=== PATIENT | male | born 1985 | race Caucasian/White ===

== ENCOUNTER 2022-06-17 11:02 | Emergency (ER) | payer OTHER, SELFPAY ==
[2022-06-17] VITALS (24 sets, daily range): BP systolic 141–171; BP diastolic 93–109; PULSE 68–115; RESP 10–21; TEMP 36.6; O2SAT 94–100
--- NOTE | ~2022-06-17 | XR_ITS ---
EXAMINATION: XR abdomen/kub 1V DATE: 06/17/2022 13:51 INDICATION: Right ureteral stone. TECHNIQUE: A supine view of the abdomen on 2 radiographs was obtained. COMPARISON: CT abdomen and pelvis 06/17/2022 FINDINGS: There are no dilated loops of bowel. There is a 6 mm stone in proximal right ureter. IMPRESSION: 1. 6 mm stone in proximal right ureter. Reviewed, dictated and finalized at location A.
--- NOTE | ~2022-06-17 | CT_ITS ---
EXAMINATION: CT abdomen pelvis wo con DATE: 06/17/2022 12:34 INDICATION: Right flank pain, hematuria. Nausea and vomiting. TECHNIQUE: Computed tomography (CT) of the abdomen and pelvis was performed without intravenous contr ast. Automated exposure control and iterative reconstruction technique were employed. Exam dose: 656 .80 mGy-cm total exam DLP. COMPARISON: None. FINDINGS: The lung bases are clear. Normal heart size. No pericardial or pleural effusion. The liver, gallbladder, bile ducts, spleen, pancreas, pancreatic duct and adrenal glands are unremark able. No left renal mass lesion or left urinary tract calculus or hydroureteronephrosis. There is right nephromegaly and perinephric stranding and mild to moderate right hydronephrosis due t o a 5 x 7.7 mm right ureteropelvic calculus. The urinary bladder and prostate gland are unremarkable. Normal caliber of the abdominal aorta. No intraperitoneal or retroperitoneal or pelvic mass lesion or adenopathy or ascites. Normal appendix. Tortuous redundant sigmoid colon. No bowel obstruction, bowel wall thickening, pneum atosis or intraperitoneal free air is evident. Small fat-containing umbilical hernia. Included skeletal structures are unremarkable. IMPRESSION: Approximately 5 x 7.7 mm obstructing right ureteropelvic calculus with mild to moderate right hydronephrosis, right perinephric stranding Reviewed, dictated and finalized at Location A. Reviewed, dictated and finalized at location B.
[2022-06-17 11:30] LABS: Basophils Percent Auto 0.2 % (0.2-1.2); Eosinophils Percent Auto 0.1 % (0-4.4); Hematocrit 42.4 % (42.0-52.0); Hemoglobin 14.4 g/dL (14.0-18.0); Immature Granulocyte Absolute 0.04 K/mm3 (0.00-0.031); Immature Granulocyte Percent A 0.4 % (0-0.5); Lymphocytes Absolute Auto 1.39 K/mm3 (0.9-3.2); Mean Corpuscular Hemoglobin 30.3 pg (26-34); Mean Corpuscular Volume 89.1 fl (80-100); Mean Platelet Volume 9.7 fl (7.4-10.4); Monocytes Absolute Auto 0.5 K/mm3 (0.1-0.6); Monocytes Percent Auto 4.3 % (2.6-8.5); Neutrophils Absolute Auto 8.8 K/mm3 (1.3-6.7); Platelet Count Result 293 k/mm3 (150-375); Red Blood Count 4.76 M/mm3 (4.6-6.20); White Blood Count 10.7 K/mm3 (4.5-10.0)
[2022-06-17 11:40] LABS: Alanine Aminotransferase 23 U/L (6-50); Albumin Level 4.6 g/dL (3.5-5.1); Alkaline Phosphatase 78 U/L (38-126); Anion Gap 10 mmol/L (8-16); Aspartate Amino Transferase 36 U/L (17-59); Bilirubin,Total 0.7 mg/dL (0.2-1.3); Blood Urea Nitrogen 18 mg/dL (9-20); Calcium 9.3 mg/dL (8.4-10.2); Carbon Dioxide 24 mmol/L (22-30); Chloride 98 mmol/L (98-107); Estimated CRCL calculation 88 ml/min; Estimated Glomerular Filt Rate > 60; Glucose 131 mg/dL (65-110); Lipase 92 U/L (23-300); Potassium 4.1 mmol/L (3.4-5.0); Sodium 132 mmol/L (137-145)
[2022-06-17 11:57] LABS: Appearance Urine Cloudy (Clear); Bilirubin Urine 1+ (Negative); Blood Urine 3+ (Negative); Color Urine Yellow (Yellow); Glucose Urine UA Negative (Negative); Ketones Urine 3+ mg/dL (Negative); Leukocyte Esterase Ur Negative LEU/UL (Negative); Nitrate Urine Negative (Negative); Protein Urine 2+ mg/dL (Negative); Specific Grav Ur >= 1.030 (1.001-1.035); pH Urine 5.5 (5.0-9.0)
[2022-06-17 12:05] LABS: Mucus Urine Heavy /lpf; RBC Urine >75 /hpf (0-2)
[2022-06-17 12:14] LABS: Add Urine Microscopic? YES
[2022-06-17] MEDS: MORPHINE SULFATE (*CRX) 4 MG/ML INJ IV PUSH (12:56)
[2022-06-17] MEDS: ONDANSETRON INJ 4 MG/2 ML VIAL IV PUSH (12:56)
--- NOTE | 2022-06-17 13:13 | ED.ABDPAIN ---
HPI - Abdominal Pain General Chief Complaint: Abdominal Pain Stated Complaint: abd pain r. sided Time Seen by Provider: 06/17/22 11:37 History of Present Illness HPI narrative: Patient is a 37-year-old male here for evaluation of right flank pain and right lower quadrant abdominal pain for the past day. Patient states the pain is intermittent in nature, is severe, begins in his right flank and radiates around to his right lower quadrant. Also reports 1 episode of hematuria 3 days ago, none since. He also reports 2 episodes of nausea and vomiting. He denies any diarrhea, constipation, fevers, chills. No history of kidney stones. Related Data Home Medications Medication Instructions Recorded Confirmed bupropion HCl 150 mg 24 hr tablet, 150 mg PO 06/17/22 extended release Allergies Allergy/AdvReac Type Severity Reaction Status Date / Time No Known Allergies Allergy Verified 06/17/22 11:37 Review of Systems Review of Systems: Gen: Denies fevers or chills Eyes: Denies eye pain or visual change ENT: Denies congestion Respiratory: Denies shortness of breath or cough CV: Denies chest pain or palpitations GI: Reports nausea and vomiting, RLQ pain. Denies diarrhea denies burning, urgency, frequency or hematuria Musculoskeletal: Reports right flank pain. Neuro: Denies numbness, tingling, weakness or focal weakness Skin: Denies rash Except as documented, all other systems reviewed and negative Exam Narrative: APPEARANCE: uncomfortable appearing. Head: Normocephalic and atraumatic. EYES: PERRLA/EOMI, conjunctivae clear NOSE: No nasal drainage EARS: External ear normal in appearance THROAT: Oropharynx is clear. Mucous membranes are moist. NECK: Supple. No adenopathy, no masses. RESPIRATORY: Airway patent, respirations nonlabored. Clear to auscultation bilaterally, no rales, rhonchi, wheezing. CARDIOVASCULAR: Regular rate and rhythm without murmurs, rubs, or gallops. ABDOMINAL: no CVA tenderness. Normoactive bowel sounds. Soft, nontender, nondistended. No rebound tenderness or guarding. MUSCULOSKELETAL: Extremities are warm and well-perfused. Moves all extremities well. No edema. NEURO: Normal speech. No focal neurologic deficits. SKIN: Skin is warm and dry. No rashes. PSYCHIATRIC: Normal affect/mood. Course Consultations Consultation #1: Spoke with Dr. Whyte, urology, agrees with plan for outpatient management Date: 06/17/22 Time: 13:34 Vital Signs Vital signs: Vital Signs Temperature 97.9 F 06/17/22 11:08 Pulse Rate 115 H 06/17/22 11:08 Respiratory Rate 14 06/17/22 11:08 Blood Pressure 158/109 H 06/17/22 11:08 Pulse Oximetry 99 06/17/22 11:08 Oxygen Delivery Room Air 06/17/22 11:08 Temperature 97.9 F 06/17/22 11:08 Pulse Rate 96 06/17/22 14:16 Respiratory Rate 17 06/17/22 14:16 Blood Pressure 141/107 H 06/17/22 14:16 Pulse Oximetry 95 06/17/22 14:16 Oxygen Delivery Room Air 06/17/22 11:29 MDM - Abdominal Pain MDM Narrative Medical decision making narrative: 37-year-old male here for evaluation of right flank pain, hematuria, nausea and vomiting over the past day. On exam, he is uncomfortable appearing, but he has no CVA tenderness or abdominal tenderness to palpation. On CT scan he has evidence of a 5 x 7 mm ureteropelvic stone on the right. He has a slight white count to 10.7, has blood in his urine, ketones, and 10-15 white blood cells. Pain and nausea improved after morphine and Zofran, and patient tolerated his p.o. challenge. Spoke with Dr. Whyte, urology, who recommends KUB in ED, flomax, sending home with urine strainer, and will see in office this week. Patient updated on plan and he is agreeable. We will send him home with pain medicine, advised him to stay away from anti-inflammatories. He was given reasons to return to the ED and he voiced understanding. Lab Data Result diagrams: 06/17/22 11:22 06/17/22 11:22 Zeynep
== END 2022-06-17 14:25 | disposition home or self-care (01) ==
PROVIDERS: Emergency Provider Emergency Medicine
DX: N13.2 Hydronephrosis with renal and ureteral calculous obstruction (principal)
CPT/HCPCS: 36415; 74018; 74176; 80053; 81001; 83690; 85025; 87086; 96374; 96375; 99284; J2270; J2405

== ENCOUNTER 2022-06-21 01:30 | Day surgery (SDC) | payer OTHER, SELFPAY ==
[2022-06-19 14:55] VITALS: BMI 28.0
--- NOTE | 2022-06-19 14:59 | SUR.PREOP ---
Report to the Outpatient Waiting Room, entrance under the green pavilion located off [facility], at time _1230 on date _06/21/22 . OR Time: 1430 . - You and your visitor will be asked a series of questions to screen for COVID 19 for your protection. - Only one visitor is allowed at this time. - The patient visitor is requested to leave or wait in car when not with patient. - A mask is required within the hospital. Patients may have clear liquids (water, carbonated beverages, clear teas, apple juice) until 3 hours prior to surgery with a maximum of 20 ounces. - No food from midnight until time of surgery - Infants may have breast milk until 4 hours before surgery, infant formula 6 hours prior to surgery. - Children will be allowed to drink immediately following surgery. If applicable, please bring a bottle or sippy cup to assist with drinking. Juice, water, soda, and popsicles are readily available. For infants on formula, please bring formula the day of surgery. Pacifiers are allowed. Take the following medications with a SIP of water the morning of surgery: ___bupropion,pain med if needed Medications to discontinue per physician ____n/a Date to take last dose____n/a Please no make-up, nail macanese, hairspray, perfume, deodorant, or body powder the day of surgery. No jewelry (including any body piercings) or valuables the day of surgery, leave them at home. Please take a shower or bath the night before, or the morning of, surgery with an antibacterial soap. Wear comfortable, loose fitting clothing. Children are encouraged to wear pajamas. - Jewelry must be removed prior to entering the operating room. Rings and piercings that are not removed may be cut off. - The hospital will not accept responsibility for valuables. - Please leave all valuables, including medications, at home the day of surgery. If you are going home after surgery, a licensed ready mix truck driver must drive you home. - NO public transportation without another adult. - We recommend that an adult stay with you for 24 hours following discharge. - We also recommend that you do not drive, make important decision, drink alcoholic beverages, or take any drugs that were not prescribed by your health care provider for at least 24 hours after your discharge time. For Pediatric surgeries, we recommend two adults accompany the child home (only one inside the building at this time). Follow any additional instructions given to you from your surgeon. If you or anyone in your household have experienced Covid symptoms in the past week, please notify your surgeon or the nurse liaison at the phone number below for possible testing. Telephone instructions given to _mariaa velez and asked if any additional questions and then verbalized understanding. Patient advised to call surgeon office or pre surgery nurse liaison [phone] if any additional questions.
[2022-06-21] VITALS (7 sets, daily range): BP systolic 110–156; BP diastolic 62–101; PULSE 78–107; RESP 10–16; TEMP 36.8–37.1; O2SAT 98–99
--- NOTE | ~2022-06-21 | XR_ITS ---
EXAMINATION: XR abdomen/kub 1V DATE: 06/21/2022 13:14 INDICATION: Right kidney stone. TECHNIQUE: A supine view of the abdomen on 2 radiographs was obtained. COMPARISON: CT abdomen and pelvis 06/17/2022 FINDINGS: There are no dilated loops of bowel. There is a 7 mm stone in proximal right ureter at L2. IMPRESSION: 1. 7 mm stone in proximal right ureter. Reviewed, dictated and finalized at location A.
--- NOTE | 2022-06-21 07:00 | WPDHPUPDATE1 ---
History and Physical Update Update Date/Time: 06/21/22 07:00 History and Physical has been reviewed, including an updated exam of the patient. There are NO changes in the patient's condition. Risks, benefits, and alternatives have been discussed and questions answered. Patient agrees to proceed with procedure.
[2022-06-21] MEDS: LACTATED RINGERS 1,000 ML 30 ML IV CONT (13:30)
[2022-06-21 14:21] LABS: Partial Thromboplastin Time 29.3 SECONDS (22.3-36.8)
--- NOTE | 2022-06-21 14:26 | P.PNAN_ITS ---
Anes - Initial Pre Proc Eval Procedure: Operation Date: 06/21/22 15:00 Proposed Procedures p Right Ureteral Extracorporeal Shock Wave Lithotripsy - Edi Brooke MD Date/Time: 06/21/22 14:26 Surgeon: Edi Brooke MD Pre Op Diagnosis: Rt ureteral kidney stones Patient Data Age: 37 Gender: M Height: 1.75 m Weight: 81.25 kg Last Vital Signs Temp 37.1 C 06/21/22 14:00 Pulse 107 H 06/21/22 14:00 Resp 16 06/21/22 14:00 BP 153/99 H 06/21/22 14:00 Pulse Ox 98 06/21/22 14:00 O2 Del Method Room Air 06/21/22 14:00 Allergies Allergy/AdvReac Type Severity Reaction Status Date / Time No Known Allergies Allergy Verified 06/21/22 14:06 Home Medications Medication Instructions Recorded Confirmed Type bupropion HCl 150 mg 24 hr tablet, 150 mg PO DAILY 06/17/22 06/21/22 History extended release hydrocodone 5 mg-acetaminophen 325 1 tablet PO Q6H PRN pain #7 tabs 06/17/22 06/21/22 Rx mg tablet tamsulosin 0.4 mg capsule (Flomax) 0.4 mg PO DAILY #14 caps 06/17/22 06/21/22 Rx Laboratory Tests 06/21/22 13:38 PT 13.0 Seconds Seconds (11.1-14.7) INR 1.0 APTT 29.3 SECONDS SECONDS (22.3-36.8) Patient hx anesthesia problems: none Family hx anesthesia problems: none Results Review: All pre-operative results and documents have been reviewed as part of the pre- operative evaluation. [facility] Past Medical History Medical History Depression Social History Social History Smoking status: Never smoker Alcohol intake: current Drinks per week: 4 Living arrangements: alone Spiritual care concerns: No Anes - Eval Final PreProcedure Day of Procedure 06/21/22 14:26 Patient weight: overweight Heart: regular rate and rhythm Lungs: clear to auscultation Airway: Mallampati scale class II Neurological: alert and oriented Last oral intake: >/= 8 hours ASA classification: II Emergent: no Anesthetic plan: proceed Anesthesia type and monitoring: general LMA and standard monitoring Results Review: All pre-operative results and documents have been reviewed as part of the pre- operative evaluation. Informed Consent: The patient's anesthetic plan and its attendant risks and benefits were discussed with the patient/family/POA. Questions were solicited and answers provided to the satisfaction of the patient/family/POA.
[2022-06-21] MEDS: ceFAZolin 2 GM/D5W 50 ML 2 GM/50 ML BAG IVPB (15:21)
--- NOTE | 2022-06-21 16:10 | W.PM.PROC2 ---
Procedure Note - Detailed Date of Procedure 06/21/22 Pre-op Diagnosis Rt. ureteral stones Post-op Diagnosis Same Procedure Performed Right ESWL Surgeon Edi Brooke MD Description of Procedure The patient was brought to the operative suite where he was placed in the supine position on the Dornier lithotripsy table. The focal point of the lithotripter was placed at a 7-8mm right proximal ureteral calculus. A total of 3000 shocks were delivered at a power setting of 4. There appeared to be good fragmentation of the stone. The patient tolerated the procedure well and was taken to the recovery room in good condition. Drains No Packing No Pathology Yes Complications No immediate complications Condition Stable Disposition PACU
[2022-06-21] MEDS: KETOROLAC 30 MG/ML VIAL (*BKC) IV PUSH (16:20)
== END 2022-06-21 17:20 | disposition home or self-care (01) ==
PROVIDERS: Visit Provider Urology
PROC: (CPT 50590; principal; 2022-06-21 15:00)
DX: N20.1 Calculus of ureter (principal); F32.A Depression, unspecified
CPT/HCPCS: 50590; 36415; 74018; 85610; 85730; J0690; J1100; J1885; J2250; J2405; J2704; J3010; J7120

== ENCOUNTER 2025-03-28 13:07 | Emergency (ER) | payer OTHER, SELFPAY ==
--- NOTE | ~2025-03-28 | CT_ITS ---
EXAMINATION: CT abdomen pelvis wo con DATE: 03/28/2025 14:22 INDICATION: Right flank pain. TECHNIQUE: Computed tomography (CT) of the abdomen and pelvis was performed without intravenous contr ast. Automated exposure control and iterative reconstruction technique were employed. The dose-length product was 464.39 mGy-cm. COMPARISON: None FINDINGS: Lung bases are clear. Heart size is normal. No pericardial or pleural effusion. Liver, gallbladder, s pleen, pancreas, bilateral adrenal glands and left kidney are normal. 7 x 5 mm obstructing stone at t he right ureteropelvic junction with mild right hydronephrosis. No other urolithiasis. Bladder is nor mal. Bowels including the appendix are normal. No free intraperitoneal gas or fluid. No pathologicall y enlarged abdominal or pelvic lymphadenopathy. Few scattered sclerotic bone islands in the pelvis an d proximal femurs the largest at the left posterior iliac spine with typical spiculated margins. IMPRESSION: 1. Obstructing 7 x 5 mm stone at the right ureteropelvic junction with mild right hydronephrosis. Reviewed, dictated and finalized at location A. IMPRESSION: 1. Obstructing 7 x 5 mm stone at the right ureteropelvic junction with mild rig ht hydronephrosis.
--- NOTE | ~2025-03-28 | XR_ITS ---
Exam: Abdomen 1V HISTORY: R upj stone COMPARISON: Reference is made to CT examination of the abdomen and pelvis dated 03/28/2025 (approximat nataly 3 hours earlier) TECHNIQUE: Supine images of the abdomen FINDINGS: Bowel gas pattern is non-obstructive. There is no free air or deep sulci. Redemonstration of a 7.2 mm calcification projecting to the right of the spine, presumably at the rig ht UPJ. Lung bases are unremarkable. Bones and soft tissues are unremarkable. IMPRESSION: Nonspecific, nonobstructive bowel gas pattern. Redemonstration of a 7.2 mm calcification projecting over the right ureteropelvic junction. Reviewed, dictated and finalized at location A. IMPRESSION: Nonspecific, nonobstructive bowel gas pattern. Redemonstration of a 7.2 mm calcification projecting over the right ureteropelv ic junction.
[2025-03-28 13:13] VITALS: BP 150/90; PULSE 83; RESP 16; TEMP 36.4; O2SAT 100
--- OUTSIDE RECORDS SUMMARY | 2025-03-28 13:13 | XMS_ITS | Clinical Summary ---
Author Organization [facility] [address] [facility] Address [address] [place] [address] Care Team Providers Care Patient Liaison Name Role Phone Vik Morrow MD Primary Care Prov ider Shantanu Dixon MD Unavailable [phone] Allergies No known active allergies Medications buPROPion SR (WELLBUTRIN SR) 150 mg 12 hr tabletIndicatio ns:Anxiety with Depression Take 150 mg by mouth every morning Active clonazePAM (KlonoPIN) 0.5 mg tablet Take 0.5 mg by mouth as needed for anxiety Active propranoloL (INDERAL) 40 mg tablet daily as needed 02/19/2022 Active methylcellulose oral powderIndicatio ns:bowels Take by mouth daily Active oxyCODONE (ROXICODONE) 5 mg immediate release tabletIndicatio ns:Pain Take 1 tablet (5 mg total) by mouth every 4 (four) hours as needed for pain 20 tablet 05/14/2022 Active Active Problems Problem Noted Date Diagnosed Date Anal warts 05/06/2022 Overview (05/06/2022): Added automatically from request for surgery [id number] Immunizations Immunization Administration Dates Next Due Moderna SARS-CoV-2 Monovalent Vaccination (12+ Y RS) 11/17/2021 Surgical History Surgery Date Site/Laterality Comments WISDOM TOOTH EXTRACTION Medical History Medical History Date Comments Anal warts Depression Anxiety PONV (postoperative nausea and vomiting) Family History Medical History Relation Name Comments Brain cancer Mother Anesthesia problems Neg Hx Relation Name Status Comments Mother Social History Tobacco Use Types Packs/Day Years Used Date Smoking Tobacco: Never Smokeless Tobacco: Never AUDIT-C Answer Date Recorded Q1: How often do you have a drink containing alc ohol? 2-3 times a week 05/14/2022 Q2: How many drinks containi ng alcohol do you have on a typical day when you are drinking? 3 or 4 05/14/2022 Q3: How often do you have si x or more drinks on one occasion? Monthly 05/14/2022 Sex and Gender Information Value Date Recorded Sex Assigned at Not on file Legal Sex Male 10:37 AM CDT Gender Identity Not on file Sexual Orientation Not on file Obstetrics History Last Filed Vital Signs Vital Sign Reading Time Taken Comments Blood Pressure 154/94 05/14/2022 3:50 PM CDT Pulse 81 05/14/2022 3:50 PM CDT Temperature 36.6 C (97.9 F) 05/14/2022 3:16 PM CDT Respiratory Rate 13 05/14/2022 3:50 PM CDT Oxygen Saturation 95% 05/14/2022 3:50 PM CDT Inhaled Oxygen Concentration - - Weight 88.5 kg (195 lb) 05/06/2022 3:15 PM CDT Height 175.3 cm (5' 9 ) 05/06/2022 3:15 PM CDT Body Mass Index 28.8 05/06/2022 3:15 PM CDT Plan of Treatment Health Maintenance Due Date Last Done Comments Depression Screening 1984 Hepatitis C Screening 1984 Varicella Vaccines (1 of 2 - 13+ 2-dose series) 01/19/1997 Regular Well Visit/Exam 18-64 01/19/2002 DTaP/Tdap/Td Vaccine (2 - Td or Tdap) 01/28/2024 01/27/2014 Covid-19 Vaccine ( season) 2024 11/17/2021, 03/23/2021 Influenza Vaccine (Season Ended) 2025 Hepatitis B Screening Completed 03/21/2022 , 11/07/2014, 06/02/2014, Additional history exists HPV Vaccines Aged Out No longer eligi ble based on patient's age to complete this topic Pneumococcal vaccine <65 Aged Out No longer eligible based on patient's age to complete this topic Insurance [facility] CHOICE PLUS Care Teams Patient Liaison Relationship Specialty Start Date End Date Vik Morrow MD PCP - General Family Practice 03/07/22 Shantanu Dixon MD [address] [facility] [place] [id number] [place] [address] Surgeon Colon and Rectal Surgery 05/03/22
--- OUTSIDE RECORDS SUMMARY | 2025-03-28 13:13 | XMS_ITS | Referral Summary ---
Author Organization [facility] [address] [facility] Address [address] [place] [address] Care Team Providers Care Firer Watertender Name Role Phone Vik Morrow MD Primary Care Prov ider Shantanu Dixon MD Unavailable [phone] Allergies No known active allergies Medications buPROPion [...] (05/06/2022): Added automatically from request for surgery [id number] Immunizations Immunization Administration Dates Next Due Moderna SARS-CoV-2 Monovalent Vaccination (12+ Y RS) 11/17/2021 Social History Tobacco Use Types Packs/Day Years [...] on file Sexual Orientation Not on file Last Filed Vital Signs Vital Sign Reading [...] 05/06/2022 3:15 PM CDT Plan of Treatment Not on file Insurance CHOICE PLUS Care Teams Firer Watertender Relationship Specialty Start Date End Date Vik Morrow MD PCP - General Family Practice 03/07/22 Shantanu Dixon MD [address] [facility] [id number] [place] [address] Surgeon Colon and Rectal Surgery 05/03/22
--- OUTSIDE RECORDS SUMMARY | 2025-03-28 13:13 | XMS_ITS | Patient Health Record ---
Author Organization [facility] Address [address] [place] [address] Care Team Providers Care Manufacturing Engineer Automotive Name Role Phone Vik Morrow Primary Care Provider [phone] PrelutskRodrigo haile [phone] Allergies No Known Allergies Results Component Value Reference Range Notes RPR, Rfx Qn RPR/Confirm TP Reviewed date:10/06/2024 08:46:05 AM Interpretation: Performing Lab:[facility], [address] [facility], Phone - [phone], [facility] Notes/Report: RPR Non Reactive Non Reactive CBC, Platelet, No Differenti al Reviewed date:10/06/2024 06:49:32 AM Interpretation: Performing Lab:[facility], [address] [facility], [place], Phone - [phone], [facility] Notes/Report: WBC 4.8 3.4-10.8 x10E3/uL Effective October 11, 2024 profile [id number] WBC will be made non-orderable as a stand-alone order code. RBC 4.38 4.14-5.80 x10E6/uL Hemoglobin 13.5 13.0-17.7 g/dL Hematocrit 40.0 37.5-51.0 % MCV 91 79-97 fL MCH 30.8 26.6-33.0 pg MCHC 33.8 31.5-35.7 g/dL RDW 12.2 11.6-15.4 % Platelets 282 150-450 x10E3/uL NRBC PUBLIC SAFETY DISPATCHER HIV 1/2 Antibody Panel 26930 5 Reviewed date:10/06/2024 06:49:32 AM Interpretation: Performing Lab:[facility] [place], [address] [place] [address], Phone - [phone], [facility] Notes/Report: HIV Ab/p24 Ag Screen Non Reactive Non Reactive HIV-1/HIV-2 antibodies and HIV-1 p24 antigen were NOT detected. There is no laboratory evidence of HIV infection. HIV Negative Lipid Panel Reviewed date:10/06/2024 06:49:32 AM Interpretation: Performing Lab:[facility] [place], [address] [place] [address], Phone - [phone], [facility] Notes/Report: Cholesterol, Total 185 100-199 mg/dL Triglycerides 81 0-149 mg/dL HDL Cholesterol 60 >39 mg/dL VLDL Cholesterol Michael 15 5-40 mg/dL LDL Chol Calc ([facility]) 110 0-99 mg/dL LDL Calc Comment: PUBLIC SAFETY DISPATCHER Comp. Metabolic Panel (14) Reviewed date:10/06/2024 06:49:32 AM Interpretation: Performing Lab:[facility] [place], [address] [facility], Phone - [phone], [facility] Notes/Report: Glucose 96 70-99 mg/dL BUN 12 6-24 mg/dL Creatinine 0.85 0.76-1.27 mg/dL eGFR 113 >59 mL/min/1.73 BUN/Creatinine Ratio 14 9-20 Sodium 139 134-144 mmol/L Potassium 4.1 3.5-5.2 mmol/L Chloride 103 96-106 mmol/L Carbon Dioxide, Total 25 20-29 mmol/L Calcium 9.3 8.7-10.2 mg/dL Protein, Total 6.8 6.0-8.5 g/dL Albumin 4.3 4.1-5.1 g/dL Globulin, Total 2.5 1.5-4.5 g/dL Bilirubin, Total 0.6 0.0-1.2 mg/dL Alkaline Phosphatase 65 44-121 IU/L AST (SGOT) 18 0-40 IU/L ALT (SGPT) 25 0-44 IU/L UA/M w/rflx Culture, Comp Reviewed date:10/06/2024 12:42:11 PM Interpretation: Performing Lab:[facility] [place], [address] [facility], [place], Phone - [phone], Director - [place] Notes/Report: Specific Clinton 1.021 1.005-1.030 pH 7.5 5.0-7.5 Urine-Color Yellow Yellow Appearance Cloudy Clear WBC Esterase Negative Negative Protein Negative Negative/Trace Glucose Negative Negative Ketones Negative Negative Occult Blood Negative Negative Bilirubin Negative Negative Urobilinogen,Semi-Qn 1.0 0.2-1.0 mg/dL Nitrite, Urine Negative Negative Microscopic Examination Comment Micr oscopic follows if indicated. Microscopic Examination See below: Micr oscopic was indicated and was performed. Urinalysis Reflex Comment This speci men will not reflex to a Urine Culture. WBC None seen 0 - 5 /hpf RBC None seen 0 - 2 /hpf Epithelial Cells (non renal) None seen 0 - 10 /hpf Epithelial Cells (renal) PUBLIC SAFETY DISPATCHER Casts None seen None seen /lpf Cast Type PUBLIC SAFETY DISPATCHER Crystals PUBLIC SAFETY DISPATCHER Crystal Type PUBLIC SAFETY DISPATCHER Mucus Threads PUBLIC SAFETY DISPATCHER Bacteria None seen None seen/Few Yeast PUBLIC SAFETY DISPATCHER Trichomonas PUBLIC SAFETY DISPATCHER Comment PUBLIC SAFETY DISPATCHER Hemoglobin A1C Reviewed date:10/05/2024 10:55:46 AM Interpretation:5.0% Performing Lab: Notes/Report: 5.0% HbA1c 5.0% Reason For Referral Reason please evaluate and treat at [facility] u Diagnosis 1 Cassei toenail (L60 .0) Referral Organization [facility], [facility] Referring Provider First Name Vik Referring Provider Last Name Cristhian Referring Provider Speciality [facility] Referred Provider Specialty Podiatry General Notes Olivia Harley 04/01/20 24 06:33:35 AM > sent to Streamline Referral Priority Routine Medications Medication SIG (Take, Route, Frequency, Duration) Notes Start Date End Date Status buPROPion HCl ER (XL) 150 MG TAKE 1 TABLET BY MOUTH EVERY DAY IN THE MORNING for 90 days Active Propranolol HCl 40 MG TAKE 1 TO 2 TABLET S BY MOUTH ONCE A DAY NEEDED FOR FLUSHING for 30 days Active clonazePAM 0.5 MG TAKE 1 TABLET BY TOVA TH EVERY DAY NEEDED FOR ANXIETY for 20 03/17/2025 Active cloNIDine HCl ER 0.1 MG 1 tablet Orally Once a day for 30 days 02/07/2025 Active Zolpidem Tartrate 10 MG TAKE 1 TABLET BY MOUTH DAILY AT BEDTIME FOR 14 DAYS NEEDED for 14 11/19/2024 Active Immunizations Vaccine Route Administration Date Status Comme nts HPV VIRUS VACCINE 9 (Gardasil 9) IM Intramuscular 05/07/2022 Administered HPV VIRUS VACCINE 9 (Gardasil 9) IM Intramuscular 09/22/2023 Administered Hep B, High Risk (Recombivax, Energix) IM Intramuscular 05/07/2022 Administered Hep B, Adult (Recombivax, Energix) IM Intramuscular 03/21/2022 Administered Flulaval Quadrivalent (Influenza Vaccine) IM Intramuscular 10/05/2024 Administered Flulaval IM Intramuscular 09/22/2023 Administered Comirnaty Covid-19 Vaccine, mRNA (2023-2024Formula) IM Intramuscular 10/05/2024 Administered Social History Tobacco Use: Social History Observation Description Date Details (start date - stop date) Never Smoker NA - NA Sex Assigned At : Social History Observation Description Sex Assigned At Male Tobacco Use/Smoking Question Answer Notes Smoking Status: nonsmoker Alcohol Screen (Audit-C) Question Answer Notes Did you have a drink contain ing alcohol in the past year? Yes How often did you have 6 or more drinks on one occasion in the past year? Weekly (3 points) How many drinks did you have on a typical day when you were drinking in the past year? 3 or 4 drinks (1 point) How often did you have a dri nk containing alcohol in the past year? 2 to 3 times a week (3 points) Tobacco use other than smoking: Question Answer Notes Are you an other tobacco user? No Problems Problem Type SNOMED Code ICD Code Onset Dates Problem Status W/U Status Risk Notes Problem [id number] MERCEDES (generalized anxiety disorder) (F41.1) Active confirmed Vital Signs Heart Rate 85 /min 10/05/2024 Temperature 97.7 degrees Fahrenheit 10/05/2024 Respiratory Rate 14 /min 10/05/2024 Oximetry 98 % 10/05/2024 Blood pressure diastolic 78 mm Hg 10/05/2024 Height 68.6 in 10/05/2024 Blood pressure systolic 132 mm Hg 10/05/2024 Weight 166.4 lbs 10/05/2024 BMI 24.86 kg/m2 10/05/2024 Encounters Encounter Location Date Provider Diagnosis [address] [address] 10/22/2024 Vik Morrow [facility] [address] [place] [address] 10/05/2024 Vik Morrow Hematuria, unspecifi ed type R31.9 ; MERCEDES (generalized anxiety disorder) F41.1 ; Encounter for screening for HIV Z11.4 ; Encounter for immunization Z23 ; Lipid screening Z13.220 ; Diabetes mellitus screening Z13.1 ; Thyroid disorder screening Z13.29 and Screening for HIV (human immunodeficiency virus) Z11.4 [facility] [address] [place] [id number] 03/30/2024 Vik Morrow [address] [address] [facility] [address] [place] [address] 11/17/2024 Vik Morrow [address] [address] 02/02/2025 Vik Morrow [facility] [address] [place] [id number] 02/07/2025 Vik Dawnovan Assessments Encounter Date Diagnosis (ICD Code) Assessment Notes Treatment Notes Treatment Clinical Notes Section Notes 10/05/2024 Hematuria, unspecified type (ICD-10 - R31.9) Continue Propranolol and wellbutrin and clonazepam instead of lexapro 10/05/2024 MERCEDES (generalized anxiety disorder) (ICD-10 - F41.1) Continue Propranolol and wellbutrin and clonazepam instead of lexapro 10/05/2024 Encounter for screening for HIV (ICD-10 - Z11.4) Continue Propranolol and wellbutrin and clonazepam instead of lexapro 10/05/2024 Encounter for immunization (ICD-10 - Z23) Continue Propranolol and wellbutrin and clonazepam instead of lexapro 10/05/2024 Lipid screening (ICD-10 - Z13.220) Continue Propranolol and wellbutrin and clonazepam instead of lexapro 10/05/2024 Diabetes mellitus screening (ICD-10 - Z13.1) Continue Propranolol and wellbutrin and clonazepam instead of lexapro 10/05/2024 Thyroid disorder screening (ICD-10 - Z13.29) Continue Propranolol and wellbutrin and clonazepam instead of lexapro 10/05/2024 Screening for HIV (human immunodeficiency virus) (ICD-10 - Z11.4) Continue Propranolol and wellbutrin and clonazepam instead of lexapro 10/05/2024 Other Continue Propranolol and wellbutrin and clonazepam instead of lexapro Plan Of Treatment No Information Insurance Providers Payer Name Payer Address Payer Phone Subscriber Number Group Number Insured Name Patient Relationship to Insured Coverage Start Date Coverage End Date [facility] [address] [place] [address] [phone] [id number] Toñito Godfrey Self - patient is the insured Medical (General) History Medical History History ICD Code AIDS/HIV: No alcohol abuse: No acid reflux: No allergies, food: No allergies, seasonal: Yes anemia: No arthritis: No asthma: No attention deficit disorder: No anxiety: Yes bipolar disorder: No bladder infections, chronic: No : No chronic diarrhea: No cough, chronic: No dementia: No depression: Yes deep vein thrombosis: No diabetes mellitus: No drug abuse: No eating disorder: No gout: No insomnia: Yes inflammatory bowel disease: No myocardial infarction: No neuropathy: No panic attacks: Yes osteoporosis: No pulmonary embolism: No rheumatoid arthritis: No seizures: No sleep apnea: No stroke: No white coat hypertension: Yes
--- OUTSIDE RECORDS SUMMARY | 2025-03-28 13:13 | XMS_ITS ---
Author Organization [facility] Address [address] [place] [address] Care Team Providers Care Operations Research Scientist Name Role Phone Vik Morrow Primary Care Provider PrelutskyRodrigo [phone] REASON FOR VISIT hpv, hep b Social History Sex Assigned At : Social History Observation Description Sex Assigned At Male Encounters Encounter Location Date Provider Diagnosis [address] [address] 10/22/2024 Vik Morrow Plan Of Treatment No Information Progress Notes * Toñito BUSTAMANTE FDOB: (40 yo M)Acc No.[id number]:10/22/2024 Vaccination or Therapeutic I njection Patient: Toñito HAMMOND Provider: Amara Morrow MD :1985 A ge:39 Y S ex:Male Date:10/22/2024 Address:[address] [place] [address] [place], [phone] Subjective: * Chief Complaints: * 1 . Hpv, hep b. * Medical History: Objective: Assessment: Plan: * Treatment: * Billing Information: * Visit Code: * Procedure Codes: Care Plan Details* * Electronic signature of Anam Morrow M.D. on 03/28/2025 at 01:13 PM CDT Sign off status: Pending * Provider: Amara Morrow MD Date: 1 12/23/2023 Generated for Rose galeana/Crista/Connie on: 0 03/28/2025 01:13 PM CDT
--- NOTE | 2025-03-28 14:12 | ED.ABDPAIN ---
HPI - Abdominal Pain General Chief Complaint: Urogenital-Male <Katherine Bryan PA-C - Last Filed: 03/30/25 17:42> Stated Complaint: Flank -right side pain-poss kidney stone <Katherine Bryan PA-C - Last Filed: 03/30/25 17:42> Time Seen by Provider: 03/28/25 14:12 <GERDA Aceves Last Filed: 03/30/25 17:42> Focused HPI: This is a 40 year old male that presents to the ER for right flank pain ongoing since this morning. Radiation to the abdomen. Reports history of kidney stones and this pain feels similar. Reports vomiting, hematuria. Denies fever, dysuria. GENERAL: Well-appearing, well-nourished, and in no acute distress. HEAD: Normocephalic, atraumatic. CHEST: Clear to auscultation. No respiratory distress. HEART: Regular rate and rhythm. NEURO: Alert and oriented x3. Patient screened in triage and initial orders placed. Additional care and disposition to be based upon diagnostic testing and treatment. <GERDA Aceves Last Filed: 03/30/25 17:42> Focused HPI: This is a 40 year old male that presents to the ER for right flank pain ongoing since this morning. Radiation to the abdomen. Reports history of kidney stones and this pain feels similar. Reports vomiting, hematuria. Denies fever, dysuria. GENERAL: Well-appearing, well-nourished, and in no acute distress. HEAD: Normocephalic, atraumatic. CHEST: Clear to auscultation. No respiratory distress. HEART: Regular rate and rhythm. NEURO: Alert and oriented x3. Patient screened in triage and initial orders placed. Additional care and disposition to be based upon diagnostic testing and treatment. <GERDA Christensen Last Filed: 03/28/25 18:41> Source: patient <GERDA Christensen Last Filed: 03/28/25 18:41> Mode of arrival: ambulatory <GERDA Christensen Last Filed: 03/28/25 18:41> Limitations: no limitations <Kathy Armstrong PA-C - Last Filed: 03/28/25 18:41> History of Present Illness HPI narrative: Agree with above HPI. Last kidney stone was 2021. Saw Dr. Brooke at that time, required lithotripsy. <Kathy Armstrong PA-C - Last Filed: 03/28/25 18:41> Related Data Home Medications: Home Medications Medication Instructions Recorded Confirmed Last Taken Type bupropion HCl 150 mg 24 hr tablet, 150 mg PO DAILY 06/17/22 03/30/25 06/16/22 History extended release <Katherine Bryan PA-C - Last Filed: 03/30/25 17:42> Allergies/Adverse Reactions: Allergies Allergy/AdvReac Type Severity Reaction Status Date / Time No Known Allergies Allergy Verified 03/30/25 12:49 <Katherine Bryan PA-C - Last Filed: 03/30/25 17:42> Review of Systems Review of Systems: All systems reviewed & are unremarkable except as noted in HPI. <Kathy Armstrong PA-C - Last Filed: 03/28/25 18:41> All systems reviewed & are unremarkable except as noted in HPI and below <Kathy Armstrong PA-C - Last Filed: 03/28/25 18:41> PMFSH Past Medical History Medical History: Medical History Depression <Katherine Bryan PA-C - Last Filed: 03/30/25 17:42> Social History Social History: Social History Smoking status: Never smoker Alcohol intake: current Drinks per week: 5 Alcohol use details: 3-5 per week Substance use: never Living arrangements: alone Spiritual care concerns: No <Katherine Bryan PA-C - Last Filed: 03/30/25 17:42> Exam Narrative: GENERAL: Well appearing, well-nourished, non-toxic, in no acute distress. HEAD: Normocephalic, atraumatic. RESPIRATORY: Airway patent, respirations nonlabored. Clear to auscultation bilaterally, no rales, rhonchi, wheezing. CARDIOVASCULAR: Regular rate and rhythm without murmurs, rubs, or gallops. ABDOMINAL: Soft, no significant abdominal tenderness, nondistended. Normoactive BS. Mild CVA tenderness to right. MUSCULOSKELETAL: Moves all extremities. No gross deformities. SKIN: Warm, dry, normal color. NEURO: A&O X3. Speech clear. PSYCHIATRIC: Appropriate mood and affect. Normal interaction. <GERDA Christensen Last Filed: 03/28/25 18:41> Course Vital Signs Vital signs: Vital Signs Temperature 97.6 F 03/28/25 13:13 Pulse Rate 83 03/28/25 13:13 Respiratory Rate 16 03/28/25 13:13 Blood Pressure 150/90 H 03/28/25 13:13 Pulse Oximetry 100 03/28/25 13:13 Temperature 97.6 F 03/28/25 13:13 Pulse Rate 95 03/28/25 16:30 Respiratory Rate 18 03/28/25 16:30 Blood Pressure 142/104 H 03/28/25 16:30 Pulse Oximetry 100 03/28/25 16:30 <GERDA Aceves Last Filed: 03/30/25 17:42> Vital Signs Temperature 97.6 F 03/28/25 13:13 Pulse Rate 83 03/28/25 13:13 Respiratory Rate 16 03/28/25 13:13 Blood Pressure 150/90 H 03/28/25 13:13 Pulse Oximetry 100 03/28/25 13:13 Temperature 97.6 F 03/28/25 13:13 Pulse Rate 95 03/28/25 16:30 Respiratory Rate 18 03/28/25 16:30 Blood Pressure 142/104 H 03/28/25 16:30 Pulse Oximetry 100 03/28/25 16:30 <GERDA Christensen Last Filed: 03/28/25 18:41> MDM - Abdominal Pain MDM Narrative Medical decision making narrative: Patient presented to ED with right flank and abdominal pain that began this morning. History of previous kidney stones feel similar. Vital signs are stable upon arrival. Patient had received a dose of morphine prior to my evaluation and is feeling much improved. Denies significant ongoing pain. CBC with white blood cell count of 11.7. Possibly reactive from pain/vomiting. H&H is stable. Kidney function is stable. Normal LFTs and lipase. UA with 3+ ketones, greater than 100 RBC. No other signs of infection. Patient given fluids in the ED. CT scan of abdomen/pelvis was obtained: 1. Obstructing 7 x 5 mm stone at the right ureteropelvic junction with mild right hydronephrosis. Consistent with clinical picture and patient's presentation. KUB was obtained and does visualize stone. Discussed lab and imaging findings with patient. He feels pain is very tolerable at this time. Feels comfortable going home. I discussed case with Dr. Koroma, urology, agrees with plan for outpatient follow-up. Advised to call office make appointment. Will discharge with pain medication, nausea medication, Flomax, strainer. Discussed very strict return precautions. Advised to avoid anti-inflammatories in preparation for likely procedure. Patient in agreement with plan. Discharged in stable condition. <Kathy Armstrong PA-C - Last Filed: 03/28/25 18:41> Medical Records Attestation: I reviewed the patient's medical records. <Kathy Armstrong PA-C - Last Filed: 03/28/25 18:41> Lab Data Attestation: I reviewed the patient's lab results. <Kathy Armstrong PA-C - Last Filed: 03/28/25 18:41> Result diagrams: 03/28/25 14:48 03/28/25 14:48 <Katherine Bryan PA-C - Last Filed: 03/30/25 17:42> Labs: Lab Results 03/28/25 Range/Units 14:48 WBC 11.7 H (4.5-10.0) K/mm3 RBC 4.52 L (4.6-6.20) M/mm3 Hgb 13.6 L (14.0-18.0) g/dL Hct 39.7 L (42.0-52.0) % MCV 87.8 (80-100) fl MCH 30.1 (26-34) pg MCHC 34.3 (32-36) g/dl RDW 11.5 (11.5-14.5) % Plt Count 257 (150-375) k/mm3 MPV 9.6 (7.4-10.4) fl Immature Gran % (Auto) 0.3 (0-0.5) % Neut % (Auto) 88.1 H (45.5-73.1) % Lymph % (Auto) 6.3 L (18.3-44.2) % [place] % (Auto) 5.0 (2.6-8.5) % Eos % (Auto) 0.0 (0-4.4) % Baso % (Auto) 0.3 (0.2-1.2) % Lymph # (Auto) 0.74 L (0.9-3.2) K/mm3 [place] # (Auto) 0.6 (0.1-0.6) K/mm3 Eos # (Auto) 0.0 (0-0.3) K/mm3 Baso # (Auto) 0.0 (0.0-0.1) K/mm3 Abs Immat Gran (auto) 0.03 (0.00-0.031) K/mm3 Absolute Neuts (auto) 10.3 H (1.3-6.7) K/mm3 Absolute Nucleated RBC 0.000 (0.0-0.012) K/mm3 Nucleated RBC % 0.0 (0.0-0.2) % Sodium 136 L (137-145) mmol/L Potassium 3.7 (3.4-5.0) mmol/L Chloride 103 (98-107) mmol/L Carbon Dioxide 23 (22-30) mmol/L Anion Gap 10 (4-12) mmol/L BUN 16 (9-20) mg/dL Creatinine 0.99 (0.7-1.3) mg/dL Estim Creat Clear Calc 87 ml/min Estimated GFR > 60 (59 - ) Glucose 82 (65-110) mg/dL Calcium 9.1 (8.4-10.2) mg/dL Total Bilirubin 0.7 (0.2-1.3) mg/dL AST 23 (17-59) U/L ALT 17 (6-50) U/L Alkaline Phosphatase 52 (38-126) U/L Total Protein 8.0 (6.3-8.2) g/dL Albumin 4.5 (3.5-5.1) g/dL Lipase 127 (23-300) U/L Urine Color Yellow (Yellow) Urine Appearance Cloudy H (Clear) Urine pH 5.5 (5.0-9.0) Ur Specific [place] 1.020 (1.001-1.035) Urine Protein 2+ H (Negative) mg/dL Urine Glucose (UA) Negative (Negative) mg/dL Urine Ketones 3+ H (Negative) mg/dL Ur Blood (Man) 3+ H (Negative) Urine Nitrate Negative (Negative) Urine Bilirubin Negative (Negative) Urine Urobilinogen 1.0 (<2.0) mg/dL Add Ur Microanalysis Reviewed Leukocyte Esterase Rfl Trace H (Negative) MAMTA/UL Urine RBC >100 H (0-2) /hpf Urine WBC 0-5 (0-3) /hpf Ur Squamous Epith Cells None seen (Few) /hpf Urine Bacteria None seen /hpf Urine Casts 6-10 <Katherine Bryan PA-C - Last Filed: 03/30/25 17:42> Lab Results 03/28/25 Range/Units 14:48 WBC 11.7 H (4.5-10.0) K/mm3 RBC 4.52 L (4.6-6.20) M/mm3 Hgb 13.6 L (14.0-18.0) g/dL Hct 39.7 L (42.0-52.0) % MCV 87.8 (80-100) fl MCH 30.1 (26-34) pg MCHC 34.3 (32-36) g/dl RDW 11.5 (11.5-14.5) % Plt Count 257 (150-375) k/mm3 MPV 9.6 (7.4-10.4) fl Immature Gran % (Auto) 0.3 (0-0.5) % Neut % (Auto) 88.1 H (45.5-73.1) % Lymph % (Auto) 6.3 L (18.3-44.2) % [place] % (Auto) 5.0 (2.6-8.5) % Eos % (Auto) 0.0 (0-4.4) % Baso % (Auto) 0.3 (0.2-1.2) % Lymph # (Auto) 0.74 L (0.9-3.2) K/mm3 [place] # (Auto) 0.6 (0.1-0.6) K/mm3 Eos # (Auto) 0.0 (0-0.3) K/mm3 Baso # (Auto) 0.0 (0.0-0.1) K/mm3 Abs Immat Gran (auto) 0.03 (0.00-0.031) K/mm3 Absolute Neuts (auto) 10.3 H (1.3-6.7) K/mm3 Absolute Nucleated RBC 0.000 (0.0-0.012) K/mm3 Nucleated RBC % 0.0 (0.0-0.2) % Sodium 136 L (137-145) mmol/L Potassium 3.7 (3.4-5.0) mmol/L Chloride 103 (98-107) mmol/L Carbon Dioxide 23 (22-30) mmol/L Anion Gap 10 (4-12) mmol/L BUN 16 (9-20) mg/dL Creatinine 0.99 (0.7-1.3) mg/dL Estim Creat Clear Calc 87 ml/min Estimated GFR > 60 (59 - ) Glucose 82 (65-110) mg/dL Calcium 9.1 (8.4-10.2) mg/dL Total Bilirubin 0.7 (0.2-1.3) mg/dL AST 23 (17-59) U/L ALT 17 (6-50) U/L Alkaline Phosphatase 52 (38-126) U/L Total Protein 8.0 (6.3-8.2) g/dL Albumin 4.5 (3.5-5.1) g/dL Lipase 127 (23-300) U/L Urine Color Yellow (Yellow) Urine Appearance Cloudy H (Clear) Urine pH 5.5 (5.0-9.0) Ur Specific [place] 1.020 (1.001-1.035) Urine Protein 2+ H (Negative) mg/dL Urine Glucose (UA) Negative (Negative) mg/dL Urine Ketones 3+ H (Negative) mg/dL Ur Blood (Man) 3+ H (Negative) Urine Nitrate Negative (Negative) Urine Bilirubin Negative (Negative) Urine Urobilinogen 1.0 (<2.0) mg/dL Add Ur Microanalysis Reviewed Leukocyte Esterase Rfl Trace H (Negative) MAMTA/UL Urine RBC >100 H (0-2) /hpf Urine WBC 0-5 (0-3) /hpf Ur Squamous Epith Cells None seen (Few) /hpf Urine Bacteria None seen /hpf Urine Casts 6-10 <GERDA Christensen Last Filed: 03/28/25 18:41> Imaging Data Attestation: I personally reviewed and interpreted this imaging study as follows: <GERDA Christensen Last Filed: 03/28/25 18:41> Radiologist's impression: ITS Impressions Abdomen/Pelvis CT 03/28/25 14:27 IMPRESSION: 1. Obstructing 7 x 5 mm stone at the right ureteropelvic junction with mild right hydronephrosis. Abdomen X-Ray 03/28/25 17:43 IMPRESSION: Nonspecific, nonobstructive bowel gas pattern. Redemonstration of a 7.2 mm calcification projecting over the right ureteropelvic junction. <GERDA Aceves Last Filed: 03/30/25 17:42> ITS Impressions Abdomen/Pelvis CT 03/28/25 14:27 IMPRESSION: 1. Obstructing 7 x 5 mm stone at the right ureteropelvic junction with mild right hydronephrosis. Abdomen X-Ray 03/28/25 17:43 IMPRESSION: Nonspecific, nonobstructive bowel gas pattern. Redemonstration of a 7.2 mm calcification projecting over the right ureteropelvic junction. <GERDA Christensen Last Filed: 03/28/25 18:41> Critical Care Time Critical Care Time Critical Care Time: No <GERDA Aceves Last Filed: 03/30/25 17:42> Discharge Plan Discharge Clinical Impression: Calculus of proximal right ureter Hydronephrosis Qualifiers: Hydronephrosis type: unspecified Qualified Code(s): N13.30 - Unspecified hydronephrosis <GERDA Aceves Last Filed: 03/30/25 17:42> Patient Disposition: Home <GERDA Aceves Last Filed: 03/30/25 17:42> Condition: Stable <GERDA Aceves Last Filed: 03/30/25 17:42> Instructions: Antibiotic Form, Kidney Stones (ED), How to Strain Your Urine (ED), Hydronephrosis (ED) <GERDA Aceves Last Filed: 03/30/25 17:42> Additional Instructions: Take Flomax daily as prescribed. Continue Tylenol as needed for pain. Oxycodone as needed for more severe pain. AVOID ANTI-INFLAMMATORIES in case you will need a procedure (no ibuprofen, advil, motrin, naproxen, aleve). Utilize Zofran for nausea. Stay well hydrated. Strain urine to collect stone. Call Urology office in the morning to make a follow-up appointment for further care. Return to the ED if you experience worsening or severe pain, unable to keep down food/drink, fevers, uncontrollable nausea/vomiting, unable to urinate, or any other symptoms of concern. <GERDA Aceves Last Filed: 03/30/25 17:42> Patient Language: Slovak <Katehrine Bryan PA-C - Last Filed: 03/30/25 17:42> Prescriptions: New oxycodone 5 mg tablet 5 mg PO Q6H PRN (Reason: pain) Qty: 15 0RF tamsulosin [Flomax] 0.4 mg capsule 0.4 mg PO DAILY Qty: 7 0RF ondansetron 4 mg tablet,disintegrating 4 mg PO Q8H PRN (Reason: nausea and vomiting) Qty: 15 0RF No Action bupropion HCl 150 mg tablet extended release 24 hr 150 mg PO DAILY tamsulosin [Flomax] 0.4 mg capsule 0.4 mg PO DAILY Qty: 14 0RF <Katherine Bryan PA-C - Last Filed: 03/30/25 17:42> Follow-up/Referrals: John Koroma MD [Physician] - (UROLOGY) PHYSICIAN NOT ON STAFF,NONSTAFF [Primary Care Provider] - <Katherine Bryan PA-C - Last Filed: 03/30/25 17:42> Time of Disposition: 18:23 <GERDA Aceves Last Filed: 03/30/25 17:42> 18:23 <GERDA Christensen Last Filed: 03/28/25 18:41>
[2025-03-28 15:04] LABS: Basophils Percent Auto 0.3 % (0.2-1.2); Hematocrit 39.7 % (42.0-52.0); Hemoglobin 13.6 g/dL (14.0-18.0); Immature Granulocyte Absolute 0.03 K/mm3 (0.00-0.031); Immature Granulocyte Percent A 0.3 % (0-0.5); Lymphocytes Absolute Auto 0.74 K/mm3 (0.9-3.2); Lymphocytes Percent Auto 6.3 % (18.3-44.2); Mean Corpuscular HGB Conc 34.3 g/dl (32-36); Mean Corpuscular Hemoglobin 30.1 pg (26-34); Mean Corpuscular Volume 87.8 fl (80-100); Mean Platelet Volume 9.6 fl (7.4-10.4); Monocytes Absolute Auto 0.6 K/mm3 (0.1-0.6); Neutrophils Absolute Auto 10.3 K/mm3 (1.3-6.7); Neutrophils Percent Auto 88.1 % (45.5-73.1); Platelet Count Result 257 k/mm3 (150-375); Red Blood Count 4.52 M/mm3 (4.6-6.20); Red Cell Distribution Width 11.5 % (11.5-14.5); White Blood Count 11.7 K/mm3 (4.5-10.0)
[2025-03-28 15:11] VITALS: BP 151/107; PULSE 103; RESP 19; O2SAT 100
[2025-03-28 15:18] LABS: Add Urine Microscopic? YES; Appearance Urine Cloudy (Clear); Bacteria Urine None Seen /hpf; Bilirubin Urine Negative (Negative); Blood Urine 3+ (Negative); Color Urine Yellow (Yellow); Glucose Urine UA Negative (Negative); Ketones Urine 3+ mg/dL (Negative); Leukocyte Esterase Ur Trace LEU/UL (Negative); Need Manual Microscopic Reviewed; Nitrate Urine Negative (Negative); Protein Urine 2+ mg/dL (Negative); RBC Urine >100 /hpf (0-2); Squamous Epithelial Cell Urine None Seen /hpf (Few); WBC Urine 0-5 /hpf (0-3); pH Urine 5.5 (5.0-9.0)
[2025-03-28] MEDS: MORPHINE SULFATE (*CRX) 4 MG/ML INJ IV PUSH (15:26)
[2025-03-28] MEDS: ONDANSETRON INJ 4 MG/2 ML VIAL IV PUSH (15:26)
[2025-03-28] MEDS: SODIUM CHLORIDE 0.9% IV 1,000 ML 999 ML IV CONT (15:27)
[2025-03-28 15:29] LABS: Alanine Aminotransferase 17 U/L (6-50); Albumin Level 4.5 g/dL (3.5-5.1); Alkaline Phosphatase 52 U/L (38-126); Anion Gap 10 mmol/L (4-12); Aspartate Amino Transferase 23 U/L (17-59); Bilirubin,Total 0.7 mg/dL (0.2-1.3); Blood Urea Nitrogen 16 mg/dL (9-20); Calcium 9.1 mg/dL (8.4-10.2); Carbon Dioxide 23 mmol/L (22-30); Chloride 103 mmol/L (98-107); Estimated CRCL calculation 87 ml/min; Estimated Glomerular Filt Rate > 60; Glucose 82 mg/dL (65-110); Lipase 127 U/L (23-300); Potassium 3.7 mmol/L (3.4-5.0); Sodium 136 mmol/L (137-145)
[2025-03-28 16:30] VITALS: BP 142/104; PULSE 95; RESP 18; O2SAT 100
--- OUTSIDE RECORDS SUMMARY | 2025-03-28 17:29 | XMS_ITS | Clinical Summary ---
Author Organization [facility] [address] [facility] Address [address] [place] [address] Care Team Providers Care Bag Loader Machine Operator Name Role Phone Vik Morrow MD Primary Care Prov ider Shantanu Dixon MD Unavailable [phone] Allergies No known active allergies Medications buPROPion [...] (05/06/2022): Added automatically from request for surgery [id number] Immunizations Immunization Administration Dates Next Due Moderna [...] patient's age to complete this topic Insurance [facility] H[facility]/PPO Address: [place] [address] Care Teams Bag Loader Machine Operator Relationship Specialty Start Date End Date Vik Morrow MD PCP - General Family Practice 03/07/22 Shantanu Dixon MD [address] [facility] [place] [id number] [place] [address] Surgeon Colon and Rectal Surgery 05/03/22
--- OUTSIDE RECORDS SUMMARY | 2025-03-28 17:29 | XMS_ITS | Referral Summary ---
Author Organization [facility] [address] [facility] Address [address] [place] [address] Care Team Providers Care Social Media Coordinator Name Role Phone Vik Morrow MD Primary Care Prov ider Shantanu Dixon MD Unavailable [phone] Allergies No known active allergies Medications buPROPion [...] (05/06/2022): Added automatically from request for surgery [id number] Immunizations Immunization Administration Dates Next Due Moderna [...] Treatment Not on file Insurance [facility] H[facility]/PPO Address: [facility] [address] [place] [address] Care Teams Social Media Coordinator Relationship Specialty Start Date End Date Vik Morrow MD PCP - General Family Practice 03/07/22 Shantanu Dixon MD [address] [facility] [id number] [place] [address] Surgeon Colon and Rectal Surgery 05/03/22
[2025-03-28] MEDS: TAMSULOSIN HCL 0.4 MG CAPSULE PO (18:35)
== END 2025-03-28 18:56 | disposition home or self-care (01) ==
PROVIDERS: Physician Assistant; Emergency Provider Physician Assistant
DX: N13.2 Hydronephrosis with renal and ureteral calculous obstruction (principal); F32.A Depression, unspecified; Z87.442 Personal history of urinary calculi; Z79.899 Other long term (current) drug therapy
CPT/HCPCS: 36415; 74018; 74176; 80053; 81001; 83690; 85025; 96361; 96374; 96375; 99284; A9270; J2270; J2405; J7030

== ENCOUNTER 2025-04-01 01:41 | Day surgery (SDC) | payer OTHER, SELFPAY ==
[2025-03-30 12:53] VITALS: BMI 23.4
--- NOTE | 2025-03-30 13:01 | PC.NURSE ---
Report to the Outpatient Waiting Room, entrance under the green pavilion located off [facility], at time _1030am on date __04/01/25 . Planned Procedure Time: __12:30pm .? Time changes happen often and if your time is changed the preop area will call you the afternoon before. - You and your visitor will be asked to self-screen and do not enter if you have any COVID symptoms. Please call surgeon if you need to reschedule. - A mask is optional within the hospital at this time. Patients may have clear liquids (water, carbonated beverages, clear teas, apple juice) until 3 hours prior to surgery with a maximum of 20 ounces. - No food from midnight until time of surgery and no smoking, or chewing tobacco (or any form of nicotine). No chewing gum, candy or mints.(0930am) Take only the following medications with a SIP of water on the morning of surgery: Buprione and Oxycodone if needed DO NOT STOP ANY OF YOUR OTHER PRESCRIPTION MEDICATIONS PRIOR TO SURGERY EXCEPT THE FOLLOWING Hold all vitamins and supplements for 3 days per anesthesiologist. Medications to discontinue per physician None Date to take last dose___None Please no make-up, nail thai, hairspray, perfume, deodorant, or body powder the day of surgery.? No jewelry (including any body piercings) or valuables the day of surgery, leave them at home.? Please take a shower or bath the night before, or the morning of, surgery with an antibacterial soap.? Wear comfortable, loose fitting clothing.? - Jewelry must be removed prior to entering the operating room.? Rings and piercings that are not removed may be cut off. - The hospital will not accept responsibility for valuables.? - Please leave all valuables, including medications, at home the day of surgery. If you are going home after surgery, a licensed driver starting gate must drive you home.? - NO public transportation without another adult if you receive anesthesia. - We recommend that an adult stay with you for 24 hours following discharge. - We also recommend that you do not drive, make important decision, drink alcoholic beverages, or take any drugs that were not prescribed by your health care provider for at least 24 hours after your discharge time. Follow any additional instructions given to you from your surgeon. Telephone instructions given to __Patient and asked if any additional questions and then verbalized understanding. Patient advised to call surgeon office or pre surgery nurse liaison [phone] if any additional questions.
[2025-04-01] VITALS (10 sets, daily range): BP systolic 113–162; BP diastolic 68–108; PULSE 66–85; RESP 12–18; TEMP 36.1–36.9; O2SAT 96–100
--- NOTE | ~2025-04-01 | XR_ITS ---
XR abdomen/kub 1V 04/01/2025 10:36 Indication: Right renal stone. Preop lithotripsy Procedure: KUB Comparison: 03/28/2025 Findings: Stable right renal stone at the L2 level. Bowel gas pattern nonobstructive. Moderate coloni c fecal loading. No acute osseous abnormality. Impression: 1: Right nephrolithiasis. Reviewed, dictated and finalized at location B. Impression: 1: Right nephrolithiasis.
--- OUTSIDE RECORDS SUMMARY | 2025-04-01 01:44 | XMS_ITS | Patient Health Record ---
Author Organization [facility] Address [address] [place] [address] Care Team Providers Care Senior Biostatistician Name Role Phone Vik Morrow Primary Care Provider PrelutskRodrigo haile [phone] Allergies No Known Allergies Results Component Value Reference Range Notes RPR, Rfx Qn RPR/Confirm TP Reviewed date:10/06/2024 08:46:05 AM Interpretation: Performing Lab:[facility], [address] [facility] Phone - [phone], Director - [facility] Notes/Report: RPR Non Reactive Non Reactive CBC, Platelet, No Differenti al Reviewed date:10/06/2024 06:49:32 AM Interpretation: Performing Lab:[employer] [employer], [address] [facility], [place], Phone - [phone], Director - [facility] Notes/Report: WBC 4.8 3.4-10.8 x10E3/uL Effective October 11, 2024 profile [id number] WBC will be made non-orderable as a stand-alone order code. RBC 4.38 4.14-5.80 x10E6/uL Hemoglobin 13.5 13.0-17.7 g/dL Hematocrit 40.0 37.5-51.0 % MCV 91 79-97 fL MCH 30.8 26.6-33.0 pg MCHC 33.8 31.5-35.7 g/dL RDW 12.2 11.6-15.4 % Platelets 282 150-450 x10E3/uL NRBC CATTLE DIPPER HIV 1/2 Antibody Panel [id number] 5 Reviewed date:10/06/2024 06:49:32 AM Interpretation: Performing Lab:[facility] [place], [address] [place] [address], Phone - [phone], [facility] - [facility] Notes/Report: HIV Ab/p24 Ag Screen Non Reactive Non Reactive HIV-1/HIV-2 antibodies and HIV-1 p24 antigen were NOT detected. There is no laboratory evidence of HIV infection. HIV Negative Lipid Panel Reviewed date:10/06/2024 06:49:32 AM Interpretation: Performing Lab:[facility] [place], [address] [place] [address], Phone - [phone], Director - [facility] Notes/Report: Cholesterol, Total 185 100-199 mg/dL Triglycerides 81 0-149 mg/dL HDL Cholesterol 60 >39 mg/dL VLDL Cholesterol Michael 15 5-40 mg/dL LDL Chol Calc ([facility]) 110 0-99 mg/dL LDL Calc Comment: CATTLE DIPPER Comp. Metabolic Panel (14) Reviewed date:10/06/2024 06:49:32 AM Interpretation: Performing Lab:[facility] [place], [address] [facility], Phone - [phone], Director - [facility] Notes/Report: Glucose 96 70-99 mg/dL BUN [...] Reviewed date:10/06/2024 12:42:11 PM Interpretation: Performing Lab:[facility] [place], [address] [facility], [place], Phone - [phone], Director - Gareth Notes/Report: Specific [place] 1.021 1.005-1.030 pH 7.5 5.0-7.5 Urine-Color Yellow [...] 0 - 10 /hpf Epithelial Cells (renal) CATTLE DIPPER Casts None seen None seen /lpf Cast Type CATTLE DIPPER Crystals CATTLE DIPPER Crystal Type CATTLE DIPPER Mucus Threads CATTLE DIPPER Bacteria None seen None seen/Few Yeast CATTLE DIPPER Trichomonas CATTLE DIPPER Comment CATTLE DIPPER Hemoglobin A1C Reviewed date:10/05/2024 10:55:46 AM Interpretation:5.0% Performing Lab: Notes/Report: 5.0% HbA1c 5.0% Reason For Referral No Information Medications Medication SIG (Take, Route, Frequency, Duration) [...] Immunizations Vaccine Route Administration Date Status Comme [facility] Covid-19 Vaccine, mRNA (2023-2024Formula) IM Intramuscular 10/05/2024 Administered Flulaval IM Intramuscular 09/22/2023 Administered Flulaval Quadrivalent (Influenza Vaccine) IM Intramuscular 10/05/2024 Administered Hep B, Adult (Recombivax, Energix) IM Intramuscular 03/21/2022 Administered Hep B, High Risk (Recombivax, Energix) IM Intramuscular 05/07/2022 Administered HPV VIRUS VACCINE 9 (Gardasil 9) IM Intramuscular 05/07/2022 Administered HPV VIRUS VACCINE 9 (Gardasil 9) IM Intramuscular 09/22/2023 Administered Social History Tobacco Use: Social History [...] Problem Status W/U Status Risk Notes Problem 13081939 MERCEDES (generalized anxiety disorder) (F41.1) Active confirmed Vital Signs Heart Rate 85 /min 10/05/2024 Temperature 97.7 degrees Fahrenheit 10/05/2024 Respiratory Rate 14 /min 10/05/2024 Oximetry 98 % 10/05/2024 Blood pressure diastolic 78 mm Hg 10/05/2024 Height 68.6 in 10/05/2024 Blood pressure systolic 132 mm Hg 10/05/2024 Weight 166.4 lbs 10/05/2024 BMI 24.86 kg/m2 10/05/2024 Encounters Encounter Location Date Provider Diagnosis [address] [address] 10/22/2024 Vik Morrow [address] [address] 10/05/2024 Vik Morrow Hematuria, unspecifi ed type R31.9 ; MERCEDES (generalized anxiety disorder) F41.1 ; Encounter for screening for HIV Z11.4 ; Encounter for immunization Z23 ; Lipid screening Z13.220 ; Diabetes mellitus screening Z13.1 ; Thyroid disorder screening Z13.29 and Screening for HIV (human immunodeficiency virus) Z11.4 [facility] [address] [place] [address] 08/02/2024 Vik Morrow [facility] [address] [place] [address] 11/17/2024 Vik Cristhian [facility] [address] [place] [address] 02/02/2025 Vik Cristhian [facility] [address] [place] [address] 02/07/2025 Vik Morrow Assessments Encounter Date Diagnosis (ICD Code) Assessment [...] Insured Coverage Start Date Coverage End Date [facility] [address] [place] [address] [id number] Toñito Godfrey Self - patient is the [...]
--- OUTSIDE RECORDS SUMMARY | 2025-04-01 01:44 | XMS_ITS | Referral Summary ---
Author Organization [facility] [address] [facility] Address [address] [place] [address] Care Team Providers Care Hot Packer Name Role Phone Vik Morrow MD Primary Care Prov ider Shantanu Dixon MD Unavailable [phone] Allergies No known active allergies Medications buPROPion [...] (05/06/2022): Added automatically from request for surgery [id number] Immunizations Immunization Administration Dates Next Due Moderna [...] on file Insurance CHOICE PLUS Care Teams Hot Packer Relationship Specialty Start Date End Date Vik Morrow MD PCP - General Family Practice 03/07/22 Shantanu Dixon MD [address] [facility] [id number] [place] [address] Surgeon Colon and Rectal Surgery 05/03/22
--- OUTSIDE RECORDS SUMMARY | 2025-04-01 01:44 | XMS_ITS ---
Author Organization [facility] Address [address] [place] [address] Care Team Providers Care Wet End Operator Name Role Phone Vik Morrow Primary Care Provider [phone] PrelutskyRodrigo [phone] REASON FOR VISIT hpv, hep b Social History Sex Assigned At : Social History Observation Description Sex Assigned At Male Encounters Encounter Location Date Provider Diagnosis [address] [address] 10/22/2024 Vik Morrow Plan Of Treatment No Information Progress Notes * Toñito BUSTAMANTE FDOB: (40 yo M)Acc No.[id number]:10/22/2024 Vaccination or Therapeutic I njection Patient: Toñito HAMMOND Provider: Amara Morrow MD :1985 A ge:39 Y S ex:Male Date:10/22/2024 Address:[address] [place] [address] [address] [place] Subjective: * Chief Complaints: * 1 . Hpv, hep b. * Medical History: Objective: Assessment: Plan: * Treatment: * Billing Information: * Visit Code: * Procedure Codes: Care Plan Details* * Electronic signature of Anam Morrow M.D. on 04/01/2025 at 01:44 AM CDT Sign off status: Pending * Provider: Amara Morrow MD Date: 1 12/23/2023 Generated for Rose galeana/Crista/Connie on: 0 04/01/2025 01:44 AM CDT
--- OUTSIDE RECORDS SUMMARY | 2025-04-01 01:44 | XMS_ITS | Clinical Summary ---
Author Organization [facility] 12[address] [facility] Address [address] [place] [address] Care Team Providers Care Consular Officer Name Role Phone Vik Morrow MD Primary Care Prov ider Shantanu Dixon MD Unavailable [phone] Allergies No known active allergies Medications buPROPion [...] (05/06/2022): Added automatically from request for surgery [id number] Immunizations Immunization Administration Dates Next Due Moderna [...] patient's age to complete this topic Insurance [facility] CHOICE PLUS Care Teams Consular Officer Relationship Specialty Start Date End Date Vik Morrow MD PCP - General Family Practice 03/07/22 Shantanu Dixon MD [address] [facility] [id number] [place] [address] Surgeon Colon and Rectal Surgery 05/03/22
--- NOTE | 2025-04-01 09:33 | WPDHPUPDATE1 ---
History and Physical Update Update Date/Time: 04/01/25 09:33 History and Physical has been reviewed, including an updated exam of the patient. There are NO changes in the patient's condition. Risks, benefits, and alternatives have been discussed and questions answered. Patient agrees to proceed with procedure.
[2025-04-01] MEDS: LACTATED RINGERS 1,000 ML 30 ML IV CONT ×2 (11:05→13:13)
[2025-04-01 11:14] LABS: INR 0.9; Prothrombin Time 12.7 Seconds (11.1-14.7)
[2025-04-01 11:15] LABS: Partial Thromboplastin Time 27.6 Seconds (22.3-36.8)
--- NOTE | 2025-04-01 11:38 | P.PNAN_ITS ---
Anes - Initial Pre Proc Eval Procedure: Operation Date: 04/01/25 12:30 Proposed Procedures p Right Extracorporeal Shock Wave Lithotripsy - John Koroma MD Date/Time: 04/01/25 11:38 Surgeon: John Koroma MD Pre Op Diagnosis: right ureteral stone Patient Data Age: 40 Gender: M Height: 1.75 m Weight: 74.85 kg Last Vital Signs Temp 36.9 C 04/01/25 11:00 Pulse 85 04/01/25 11:00 Resp 16 04/01/25 11:00 BP 147/103 H 04/01/25 11:00 Pulse Ox 97 04/01/25 11:00 O2 Del Method Room Air 04/01/25 11:00 Allergies Allergy/AdvReac Type Severity Reaction Status Date / Time No Known Allergies Allergy Verified 04/01/25 11:14 Home Medications ?Medication ?Instructions ?Recorded ?Confirmed ?Type bupropion HCl 150 mg 24 hr tablet, 150 mg PO DAILY 06/17/22 03/30/25 History extended release tamsulosin 0.4 mg capsule (Flomax) 0.4 mg PO DAILY #14 caps 06/17/22 03/30/25 Rx ondansetron 4 mg disintegrating 4 mg PO Q8H PRN nausea and 03/28/25 03/30/25 Rx tablet vomiting #15 tabs oxycodone 5 mg tablet 5 mg PO Q6H PRN pain #15 tabs 03/28/25 04/01/25 Rx tamsulosin 0.4 mg capsule (Flomax) 0.4 mg PO DAILY #7 caps 03/28/25 03/30/25 Rx Laboratory Tests 04/01/25 10:58 PT 12.7 Seconds (11.1-14.7) INR 0.9 APTT 27.6 Seconds (22.3-36.8) Patient hx anesthesia problems: none Family hx anesthesia problems: none Results Review: All pre-operative results and documents have been reviewed as part of the pre- operative evaluation. [facility] Past Medical History Medical History Depression Social History Social History Smoking status: Never smoker Alcohol intake: current Drinks per week: 5 Alcohol use details: 3-5 per week Substance use: never Living arrangements: alone Spiritual care concerns: No Anes - Eval Final PreProcedure Day of Procedure 04/01/25 11:38 Patient weight: normal Heart: regular rate and rhythm Lungs: clear to auscultation Airway: Mallampati scale class II Neurological: alert and oriented Last oral intake: >/= 8 hours ASA classification: II Emergent: no Anesthetic plan: proceed Anesthesia type and monitoring: general LMA and standard monitoring Results Review: All pre-operative results and documents have been reviewed as part of the pre- operative evaluation. Informed Consent: The patient's anesthetic plan and its attendant risks and benefits were discussed with the patient/family/POA. Questions were solicited and answers provided to the satisfaction of the patient/family/POA.
--- NOTE | 2025-04-01 12:24 | W.PM.PROC2 ---
Procedure Note - Detailed Date of Procedure 04/01/25 Pre-op Diagnosis right ureteral stone Post-op Diagnosis Same Procedure Performed Lithotripsy of proximal right ureteral calculus Surgeon John Koroma MD Anesthesia General Description of Procedure Patient was taken to the operative suite correctly identified. Once anesthesia was obtained the stone was localized in both planes. Two thousand five hundred shocks were given to the stone. It appeared to fragment well. Patient was taken recovery room stable condition. A follow-up in 10 days with KUB. All call us for develops any issues. This completes dictation. Please send a copy of op note to my office Estimated Blood Loss 0 Drains No Packing No Pathology None sent Complications No immediate complications Condition Stable Disposition PACU
[2025-04-01] MEDS: LABETALOL HCL INJ 100 MG/20 ML VIAL IV PUSH (13:09)
== END 2025-04-01 14:12 | disposition home or self-care (01) ==
PROVIDERS: Visit Provider Urology
PROC: (CPT 50590; principal; 2025-04-01 12:30)
DX: N20.1 Calculus of ureter (principal)
CPT/HCPCS: 50590; 36415; 74018; 85610; 85730; J0690; J1100; J2003; J2250; J2405; J2704; J3010; J7120

== ENCOUNTER 2025-04-22 11:34 | Outpatient (CLI) | payer OTHER, SELFPAY ==
--- NOTE | ~2025-04-22 | XR_ITS ---
XR abdomen/kub 1V 04/22/2025 11:56 INDICATION: Right ureteral stone TECHNIQUE: KUB COMPARISON: 03/12/2025 FINDINGS: Bowel gas pattern is normal. There is no evidence of free air, mass, organomegaly, ascites or obstruction. There is a possible 18 x 9 mm stone at the L4-5 level on the right is obscured by ger wel content. Recommend correlation with CT. The bones appear intact. IMPRESSION: 1: Possible right ureteral stone measuring 18 mm at L4-5. Correlation with CT recommended.. Reviewed, dictated and finalized at location B. IMPRESSION: 1: Possible right ureteral stone measuring 18 mm at L4-5. Correlation with CT r ecommended..
--- OUTSIDE RECORDS SUMMARY | 2025-04-22 11:38 | XMS_ITS | Clinical Summary ---
Author Organization [facility] [address] [facility] Address [address] [place] [address] Care Team Providers Care Maintenance Job Titles Name Role Phone Vik Morrow MD Primary Care Prov ider Shantanu Dixon MD Unavailable [phone] Allergies No known active allergies Medications buPROPion [...] (05/06/2022): Added automatically from request for surgery [id number] Immunizations Immunization Administration Dates Next Due Moderna [...] 3:15 PM CDT Height 175.3 cm (5' 9) 05/06/2022 3:15 PM CDT Body Mass Index [...] patient's age to complete this topic Insurance [facility] CHOICE [facility] HMO/PPO Address: [place] [address] Care Teams Maintenance Job Titles Relationship Specialty Start Date End Date Vik Morrow MD PCP - General Family Practice 03/07/22 Shantanu Dixon MD [address] [facility] [phone] [place] [address] Surgeon Colon and Rectal Surgery 05/03/22
--- OUTSIDE RECORDS SUMMARY | 2025-04-22 11:38 | XMS_ITS | Referral Summary ---
Author Organization [facility] 12[address] [facility] Address [address] [place] [address] Care Team Providers Care Document Restorer Name Role Phone Vik Morrow MD Primary Care Prov ider Shantanu Dixon MD Unavailable [phone] Allergies No known active allergies Medications buPROPion [...] (05/06/2022): Added automatically from request for surgery [id number] Immunizations Immunization Administration Dates Next Due Moderna [...] on file Insurance CHOICE PLUS Care Teams Document Restorer Relationship Specialty Start Date End Date Vik Morrow MD PCP - General Family Practice 03/07/22 Shantanu Dixon MD [address] [facility] [id number] [place] [address] Surgeon Colon and Rectal Surgery 05/03/22
--- OUTSIDE RECORDS SUMMARY | 2025-04-22 11:39 | XMS_ITS | Patient Health Record ---
Author Organization [facility] Address [address] [place] [address] Care Team Providers Care Retail And Restaurant Associate Name Role Phone Cristhian Vik Primary Care Provider [phone] PrelutskRodrigo haile [phone] Allergies No Known Allergies Results Component Value Reference Range Notes Hemoglobin A1C Reviewed date:10/05/2024 10:55:46 AM Interpretation:5.0% Performing Lab: Notes/Report: 5.0% HbA1c 5.0% UA/M w/rflx Culture, Comp Reviewed date:10/06/2024 12:42:11 PM Interpretation: Performing Lab:[facility] [place], [address] [place] [address], Phone - [phone], Director - PhDRicchiuti Notes/Report: Specific Candor 1.021 1.005-1.030 pH 7.5 5.0-7.5 Urine-Color Yellow [...] 0 - 10 /hpf Epithelial Cells (renal) FIELD INSURANCE SALES MANAGER Casts None seen None seen /lpf Cast Type FIELD INSURANCE SALES MANAGER Crystals FIELD INSURANCE SALES MANAGER Crystal Type FIELD INSURANCE SALES MANAGER Mucus Threads FIELD INSURANCE SALES MANAGER Bacteria None seen None seen/Few Yeast FIELD INSURANCE SALES MANAGER Trichomonas FIELD INSURANCE SALES MANAGER Comment FIELD INSURANCE SALES MANAGER Comp. Metabolic Panel (14) Reviewed date:10/06/2024 06:49:32 AM Interpretation: Performing Lab:[facility], [address] [place] [address], Phone - [phone], [facility] Notes/Report: Glucose 96 70-99 mg/dL BUN 12 [...] 0-40 IU/L ALT (SGPT) 25 0-44 IU/L Lipid Panel Reviewed date:10/06/2024 06:49:32 AM Interpretation: Performing Lab:[facility], Phone - [phone], Director [facility] Notes/Report: Cholesterol, Total 185 100-199 mg/dL Triglycerides 81 0-149 mg/dL HDL Cholesterol 60 >39 mg/dL VLDL Cholesterol Michael 15 5-40 mg/dL LDL Chol Calc ([facility]) 110 0-99 mg/dL LDL Calc Comment: FIELD INSURANCE SALES MANAGER HIV 1/2 Antibody Panel [id number] Reviewed date:10/06/2024 06:49:32 AM Interpretation: Performing Lab:[address], Phone - [phone], [facility] Notes/Report: HIV Ab/p24 Ag Screen Non Reactive Non Reactive HIV-1/HIV-2 antibodies and HIV-1 p24 antigen were NOT detected. There is no laboratory evidence of HIV infection. HIV Negative CBC, Platelet, No Differenti al Reviewed date:10/06/2024 06:49:32 AM Interpretation: Performing Lab:[facility] [place], [address] [facility], Phone - [phone], Director - [facility] Notes/Report: WBC 4.8 3.4-10.8 x10E3/uL Effective October 11, 2024 profile [id number] WBC will be made non-orderable as a stand-alone order code. RBC 4.38 4.14-5.80 x10E6/uL Hemoglobin 13.5 13.0-17.7 g/dL Hematocrit 40.0 37.5-51.0 % MCV 91 79-97 fL MCH 30.8 26.6-33.0 pg MCHC 33.8 31.5-35.7 g/dL RDW 12.2 11.6-15.4 % Platelets 282 150-450 x10E3/uL NRBC FIELD INSURANCE SALES MANAGER RPR, Rfx Qn RPR/Confirm TP Reviewed date:10/06/2024 08:46:05 AM Interpretation: Performing Lab:[facility] [place], [address] [facility], Phone - [phone], Director - [facility] Notes/Report: RPR Non Reactive Non Reactive Reason For Referral No Information Medications Medication SIG (Take, Route, Frequency, Duration) Notes Start Date End Date Status clonazePAM 0.5 MG TAKE 1 TABLET BY TOVA TH EVERY DAY NEEDED FOR ANXIETY for 20 03/17/2025 Active Propranolol HCl 40 MG TAKE 1 TO 2 TABLET S BY MOUTH ONCE A DAY NEEDED FOR FLUSHING for 30 days Active Losartan Potassium 25 MG 1 tablet Orally Once a day for 90 days 04/19/2025 Active Zolpidem Tartrate 10 MG TAKE 1 TABLET BY MOUTH DAILY AT BEDTIME FOR 14 DAYS NEEDED for 14 04/21/2025 Active busPIRone HCl 10 MG 1 tablet Orally Twic e a day for 90 days 04/19/2025 10/15/2025 Active cloNIDine HCl ER 0.1 MG 1 tablet Orally Once a day for 30 days 02/07/2025 Active buPROPion HCl ER (XL) 150 MG TAKE 1 TABLET BY MOUTH EVERY DAY IN THE MORNING for 90 days Active Immunizations Vaccine Route Administration Date Status Comme john Barry Covid-19 Vaccine, mRNA (2023-2024Formula) IM Intramuscular 10/05/2024 Administered Flulaval IM Intramuscular 09/22/2023 Administered Flulaval Quadrivalent (Influenza Vaccine) IM Intramuscular 10/05/2024 Administered Hep B, Adult (Recombivax, Energix) IM Intramuscular 03/21/2022 Administered Hep B, Adult (Recombivax, Energix) IM Intramuscular 04/19/2025 Administered Hep B, High Risk (Recombivax, Energix) IM Intramuscular 05/07/2022 Administered HPV VIRUS VACCINE 9 (Gardasil 9) IM Intramuscular 05/07/2022 Administered HPV VIRUS VACCINE 9 (Gardasil 9) IM Intramuscular 09/22/2023 Administered HPV VIRUS VACCINE 9 (Gardasil 9) IM Intramuscular 04/19/2025 Administered Social History Tobacco Use: Social History [...] Problem Status W/U Status Risk Notes Problem 80098697 Essential hypertension (I10) Active confirmed Problem 34964556 MERCEDES (generalized anxiety disorder) (F41.1) Active confirmed Vital Signs Heart Rate 79 /min 04/19/2025 Temperature 97.8 degrees Fahrenheit 04/19/2025 Respiratory Rate 14 /min 04/19/2025 Oximetry 97 % 04/19/2025 Blood pressure diastolic 106 mm Hg 04/19/2025 Height 68.6 in 04/19/2025 Blood pressure systolic 148 mm Hg 04/19/2025 Weight 168.8 lbs 04/19/2025 BMI 25.22 kg/m2 04/19/2025 Encounters Encounter Location Date Provider Diagnosis [address] [address] 10/22/2024 Vik Cristhian [address] [address] 10/05/2024 Vik Morrow Hematuria, unspecifi ed type R31.9 ; MERCEDES (generalized anxiety disorder) F41.1 ; Encounter for screening for HIV Z11.4 ; Encounter for immunization Z23 ; Lipid screening Z13.220 ; Diabetes mellitus screening Z13.1 ; Thyroid disorder screening Z13.29 and Screening for HIV (human immunodeficiency virus) Z11.4 [facility]. [address] [place] [address] 04/19/2025 Vik Morrow MERCEDES (generalized anxiety disorder) F41.1 ; Essential hypertension I10 and Encounter for immunization Z23 [address] [address] 08/02/[address] [address] 11/17/[address] [address] 02/02/[address] [address] 02/07/[address] [address] 04/07/2025 Vik Morrow Assessments Encounter Date Diagnosis (ICD Code) Assessment Notes Treatment Notes Treatment Clinical Notes Section Notes 10/05/2024 Hematuria, unspecified type (ICD-10 - R31.9) Continue Propranolol and wellbutrin and clonazepam instead of lexapro 04/19/2025 Essential hypertension (ICD-10 - I10) If buspirone does not work well, then will consider once daily ER propranolol instead. 04/19/2025 MERCEDES (generalized anxiety disorder) (ICD-10 - F41.1) If buspirone does not work well, then will consider once daily ER propranolol instead. 04/19/2025 Encounter for immunization (ICD-10 - Z23) If buspirone does not work well, then will consider once daily ER propranolol instead. 10/05/2024 MERCEDES (generalized anxiety disorder) (ICD-10 - [...] clonazepam instead of lexapro Plan Of Treatment Next Appt Details Provider Name:Vik Colon susanna, 05/19/2025 09:40:00 AM, [address] [place], [address], Insurance Providers Payer Name Payer Address Payer Phone Subscriber Number Group Number Insured Name Patient Relationship to Insured Coverage Start Date Coverage End Date [facility] [address] [place] [address] [id number] Arlenwalterjae alaniz Toñito Self - patient is the insured Medical [...]
--- OUTSIDE RECORDS SUMMARY | 2025-04-22 11:39 | XMS_ITS ---
Author Organization [facility] Address [address] [place] [address] Care Team Providers Care Kiln Drawer Name Role Phone Vik Morrow Primary Care Provider [phone] PrelutskyRodrigo [phone] REASON FOR VISIT hpv, hep b Social History Sex Assigned At : Social History Observation Description Sex Assigned At Male Encounters Encounter Location Date Provider Diagnosis [facility] [address] [place] [address] 10/22/2024 Vik Morrow Plan Of Treatment Next Appt Details Provider Name:Vik mullins, 05/19/2025 09:40:00 AM, [address] [place], [address], Progress Notes * CHARLIEToñito THURMAN FDOB: (40 yo M)Acc No.[id number]:10/22/2024 Vaccination or Therapeutic I njection Patient: Toñito HAMMOND Provider: Amara Morrow MD :1985 A ge:39 Y S ex:Male Date:10/22/2024 Address:[address] [place], [place] [address] [place], [place] Subjective: * Chief Complaints: * 1 . Hpv, hep b. * Medical History: Objective: Assessment: Plan: * Treatment: * Billing Information: * Visit Code: * Procedure Codes: Care Plan Details* * Electronic signature of Anam Morrow M.D. on 04/22/2025 at 11:38 AM CDT Sign off status: Pending * Provider: Amara Morrow MD Date: 12/23/2023 Generated for Rose galeana/Crista/Connie on: 04/22/2025 11:38 AM CDT
== END 2025-04-22 11:35 | disposition home or self-care (01) ==
PROVIDERS: Visit Provider Urology
DX: N20.1 Calculus of ureter (principal)
CPT/HCPCS: 74018

== ENCOUNTER 2025-05-20 12:55 | Outpatient (CLI) | payer OTHER, SELFPAY ==
--- NOTE | ~2025-05-20 | CT_ITS ---
Non-contrast CT scan of the Abdomen and Pelvis Clinical indication: Right ureteral stone Technique: 2.5 mm axial scans were obtained through the abdomen and pelvis without intravenous or or al contrast. Dose reduction technique was used on this scan by utilizing automated exposure control a nd iterative reconstruction technique. The dose-length product (DLP) was 208.09 mGy-cm. COMPARISON: 03/28/2025 Findings: Images through the lung bases reveal no abnormalities. There is no evidence of renal or ureteral calculi. The kidneys and the ureters are nondilated. The liver, spleen, pancreas, gallbladder, and adrenals appear normal. There is no aortic aneurysm. There is no evidence of bowel obstruction. Images through the pelvis were performed. There is no evidence of ascites or lymphadenopathy. Urinary bladder unremarkable. No pelvic mass seen. Impression: No significant abnormality seen. No renal, ureteral, or bladder stone. No hydronephrosis. Reviewed, dictated and finalized at [facility]. Impression: No significant abnormality seen. No renal, ureteral, or bladder stone. No hydro nephrosis.
--- OUTSIDE RECORDS SUMMARY | 2025-05-20 13:01 | XMS_ITS | Patient Health Record ---
Author Organization [facility] ([facility] Address [address] [facility] [address] Care Team Providers Care Header Operator Name Role Phone Vik Morrow Primary Care Provider PrelutskRodrigo haile Unavailable [phone] Allergies No Known Allergies Results Component Value Reference Range Notes Comp. Metabolic Panel (14) Reviewed date:05/20/2025 10:27:31 AM Interpretation: Performing Lab:[facility] [place], [address] [facility], [place], Phone - [phone], Director - Gareth Notes/Report: Glucose 94 70-99 mg/dL BUN 16 6-24 mg/dL Creatinine 1.09 0.76-1.27 mg/dL eGFR 87 >59 mL/min/1.73 BUN/Creatinine Ratio 15 9-20 Sodium 138 134-144 mmol/L Potassium 4.4 3.5-5.2 mmol/L Chloride 103 96-106 mmol/L Carbon Dioxide, Total 21 20-29 mmol/L Calcium 9.6 8.7-10.2 mg/dL Protein, Total 7.2 6.0-8.5 g/dL Albumin 4.6 4.1-5.1 g/dL Globulin, Total 2.6 1.5-4.5 g/dL Bilirubin, Total 0.3 0.0-1.2 mg/dL Alkaline Phosphatase 70 44-121 IU/L AST (SGOT) 12 0-40 IU/L ALT (SGPT) 12 0-44 IU/L RPR, Rfx Qn RPR/Confirm TP Reviewed date:10/06/2024 08:46:05 AM Interpretation: Performing Lab:[facility] [address] [place] [address], Phone - [phone], Director - [facility] Notes/Report: RPR Non Reactive Non Reactive CBC, Platelet, No Differenti al Reviewed date:10/06/2024 06:49:32 AM Interpretation: Performing Lab:[address], Phone - [phone], Director - [facility] Notes/Report: WBC 4.8 3.4-10.8 x10E3/uL Effective October 11, 2024 profile [id number] WBC will be made non-orderable as a stand-alone order code. RBC 4.38 4.14-5.80 x10E6/uL Hemoglobin 13.5 13.0-17.7 g/dL Hematocrit 40.0 37.5-51.0 % MCV 91 79-97 fL MCH 30.8 26.6-33.0 pg MCHC 33.8 31.5-35.7 g/dL RDW 12.2 11.6-15.4 % Platelets 282 150-450 x10E3/uL NRBC FUND CONTROLLER HIV 1/2 Antibody Panel [id number] 5 Reviewed date:10/06/2024 06:49:32 AM Interpretation: Performing [facility] [address] [place] [address], Phone - [phone], Director - [facility] Notes/Report: HIV Ab/p24 Ag Screen Non Reactive Non Reactive HIV-1/HIV-2 antibodies and HIV-1 p24 antigen were NOT detected. There is no laboratory evidence of HIV infection. HIV Negative Lipid Panel Reviewed date:10/06/2024 06:49:32 AM Interpretation: Performing Lab:[facility] [address] [place] [address], Phone - [phone], Director - [facility] Notes/Report: Cholesterol, Total 185 100-199 mg/dL Triglycerides 81 0-149 mg/dL HDL Cholesterol 60 >39 mg/dL VLDL Cholesterol Michael 15 5-40 mg/dL LDL Chol Calc ([facility]) 110 0-99 mg/dL LDL Calc Comment: FUND CONTROLLER Comp. Metabolic Panel (14) Reviewed date:10/06/2024 06:49:32 AM Interpretation: Performing Lab:[facility] [place], [address] [facility], Phone - [phone], [facility] Notes/Report: Glucose 96 70-99 mg/dL BUN 12 [...] Comp Reviewed date:10/06/2024 12:42:11 PM Interpretation: Performing Lab:[facility] [place], [address] [facility], Phone - [phone], Director - [facility] Notes/Report: Specific Trinidad 1.021 1.005-1.030 pH 7.5 5.0-7.5 Urine-Color Yellow [...] 0 - 10 /hpf Epithelial Cells (renal) FUND CONTROLLER Casts None seen None seen /lpf Cast Type FUND CONTROLLER Crystals FUND CONTROLLER Crystal Type FUND CONTROLLER Mucus Threads FUND CONTROLLER Bacteria None seen None seen/Few Yeast FUND CONTROLLER Trichomonas FUND CONTROLLER Comment FUND CONTROLLER Hemoglobin A1C Reviewed date:10/05/2024 10:55:46 AM Interpretation:5.0% Performing Lab: Notes/Report: 5.0% HbA1c 5.0% Reason For Referral No Information Medications Medication SIG (Take, Route, Frequency, Duration) Notes Start Date End Date Status Zolpidem Tartrate 10 MG TAKE 1 TABLET BY MOUTH DAILY AT BEDTIME FOR 14 DAYS NEEDED for 14 04/21/2025 Active Losartan Potassium 50 MG 1 tablet Orally Once a day for 90 days Active busPIRone HCl 15 MG 1 tablet Orally Twic e a day for 90 days Active clonazePAM 0.5 MG TAKE 1 TABLET BY TOVA TH EVERY DAY NEEDED FOR ANXIETY for 20 03/17/2025 Active Propranolol HCl 40 MG TAKE 1 TO 2 TABLET S BY MOUTH ONCE A DAY NEEDED FOR FLUSHING for 30 days Active buPROPion HCl ER (XL) 150 MG TAKE 1 TABLET BY MOUTH EVERY DAY IN THE MORNING for 90 days Active Immunizations Vaccine Route Administration Date Status Comme nts Tdap (Boostrix, Adacel) IM Intramuscular 05/19/2025 Admini stered HPV VIRUS VACCINE 9 (Gardasil 9) IM Intramuscular 05/07/2022 Administered HPV VIRUS VACCINE 9 (Gardasil 9) IM Intramuscular 09/22/2023 Administered HPV VIRUS VACCINE 9 (Gardasil 9) IM Intramuscular 04/19/2025 Administered Hep B, High Risk (Recombivax, Energix) IM Intramuscular 05/07/2022 Administered Hep B, Adult (Recombivax, Energix) IM Intramuscular 03/21/2022 Administered Hep B, Adult (Recombivax, Energix) IM Intramuscular 04/19/2025 Administered Flulaval Quadrivalent (Influenza Vaccine) IM Intramuscular [...] Problem Status W/U Status Risk Notes Problem 33455919 Essential hypertension (I10) Active confirmed Problem 17722718 MERCEDES (generalized anxiety disorder) (F41.1) Active confirmed Vital Signs Heart Rate 97 /min 05/19/2025 Temperature 98.0 degrees Fahrenheit 05/19/2025 Respiratory Rate 14 /min 05/19/2025 Oximetry 98 % 05/19/2025 Blood pressure diastolic 94 mm Hg 05/19/2025 Height 68.6 in 05/19/2025 Blood pressure systolic 142 mm Hg 05/19/2025 Weight 167.0 lbs 05/19/2025 BMI 24.95 kg/m2 05/19/2025 Encounters Encounter Location Date Provider Diagnosis [address] [address] 10/22/2024 Vik Morrow [address] [address] 10/05/2024 Vik Morrow Hematuria, unspecifi ed type R31.9 ; MERCEDES (generalized anxiety disorder) F41.1 ; Encounter for screening for HIV Z11.4 ; Encounter for immunization Z23 ; Lipid screening Z13.220 ; Diabetes mellitus screening Z13.1 ; Thyroid disorder screening Z13.29 and Screening for HIV (human immunodeficiency virus) Z11.[address] [address] 04/19/2025 Vik Morrow MERCEDES (generalized anxiety disorder) F41.1 ; Essential hypertension I10 and Encounter for immunization Z23 [address] [address] 05/19/2025 Vik Morrow MERCEDES (generalized anxiety disorder) F41.1 ; Essential hypertension I10 and Encounter for immunization Z23 [address] [address] 08/02/[address] [facility] [address] [place] [address] 11/17/[address] [facility], [facility] [address] [place] [address] 02/02/[address] [facility] [address] [facility] [place] [address] 02/07/[address] [facility] [address] [address] 04/07/2025 Vik Morrow Assessments Encounter Date Diagnosis [...] will consider once daily ER propranolol instead. 05/19/2025 MERCEDES (generalized anxiety disorder) (ICD-10 - F41.1) If buspirone does not work well, then will consider once daily ER propranolol instead. 05/19/2025 Essential hypertension (ICD-10 - I10) If buspirone [...] and wellbutrin and clonazepam instead of lexapro 05/19/2025 Encounter for immunization (ICD-10 - Z23) If buspirone does not work well, then will consider once daily ER propranolol instead. 10/05/2024 Encounter for immunization (ICD-10 - Z23) [...] Next Appt Details Provider Name:Vik Colon susanna, 08/18/2025 10:40:00 AM, [address] [place], [address], Insurance Providers Payer Name Payer Address Payer Phone Subscriber Number Group Number Insured Name Patient Relationship to Insured Coverage Start Date Coverage End Date [employer] [address] [address] [place] [address] [phone] [id number] Toñito Miller Self - patient is the insured Medical [...]
--- OUTSIDE RECORDS SUMMARY | 2025-05-20 13:01 | XMS_ITS | Clinical Summary ---
Author Organization [facility] [address] [facility] Address [address] [place] [address] Care Team Providers Care Net Mender Name Role Phone Vik Morrow MD Primary Care Prov ider Shantanu Dixon MD Unavailable [phone] Allergies No known active allergies Medications buPROPion [...] (05/06/2022): Added automatically from request for surgery [id number] Immunizations Immunization Administration Dates Next Due Moderna [...] ( season) 2024 11/17/2021, 03/23/2021 Influenza Vaccine (#1) 2025 Hepatitis B Screening Completed 03/21/2022 , 11/07/2014, 06/02/2014, Additional history exists HPV Vaccines Aged Out No longer eligi ble based on patient's age to complete this topic Pneumococcal vaccine <65 Aged Out No longer eligible based on patient's age to complete this topic Insurance [facility] CHOICE PLUS Care Teams Net Mender Relationship Specialty Start Date End Date Vik Morrow MD PCP - General Family Practice 03/07/22 Shantanu Dixon MD [address] [facility] [phone] [place] [address] Surgeon Colon and Rectal Surgery 05/03/22
--- OUTSIDE RECORDS SUMMARY | 2025-05-20 13:01 | XMS_ITS | Referral Summary ---
Author Organization [facility] [address] [facility] Address [address] [place] [address] Care Team Providers Care Floor Installation Mechanic Name Role Phone Vik Morrow MD Primary Care Prov ider Shantanu Dixon MD Unavailable [phone] Allergies No known active allergies Medications buPROPion [...] (05/06/2022): Added automatically from request for surgery [id number] Immunizations Immunization Administration Dates Next Due Moderna [...] on file Insurance CHOICE PLUS Care Teams Floor Installation Mechanic Relationship Specialty Start Date End Date Vik Morrow MD PCP - General Family Practice 03/07/22 Shantanu Dixon MD [address] [facility] [phone] [place] [address] Surgeon Colon and Rectal Surgery 05/03/22
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
--- OUTSIDE RECORDS SUMMARY | 2025-05-20 13:02 | XMS_ITS ---
Author Organization [facility] Address [address] [place] [address] Care Team Providers Care Ordering Box Operator Name Role Phone Vik Morrow Primary Care Provider PrelutskyRodrigo [phone] REASON FOR VISIT hpv, hep b Social History Sex Assigned At : Social History Observation Description Sex Assigned At Male Encounters Encounter Location Date Provider Diagnosis [facility] [address] [place] [address] 10/22/2024 Vik Morrow Plan Of Treatment Next Appt Details Provider Name:Vik mullins, 08/18/2025 10:40:00 AM, [address] [place], [address], Progress Notes * CHARLIEToñito THURMAN FDOB: (40 yo M)Acc No.[id number]:10/22/2024 Vaccination or Therapeutic I njection Patient: Toñito HAMMOND Provider: Amara Morrow MD :1985 A ge:39 Y S ex:Male Date:10/22/2024 Address:[address] [place], [place] [address], [place] Subjective: * Chief Complaints: * 1 . Hpv, hep b. * Medical History: Objective: Assessment: Plan: * Treatment: * Billing Information: * Visit Code: * Procedure Codes: Care Plan Details* * Electronic signature of Anam Morrow M.D. on 05/20/2025 at 01:01 PM CDT Sign off status: Pending * Provider: Amara Morrow MD Date: 12/23/2023 Generated for Rose galeana/Crista/Connie on: 05/20/2025 01:01 PM CDT
== END 2025-05-20 12:56 | disposition home or self-care (01) ==
PROVIDERS: Visit Provider Urology
DX: N20.1 Calculus of ureter (principal)
CPT/HCPCS: 74176